=== PATIENT | male | born 1940 | race Caucasian/White ===

== ENCOUNTER 2017-07-29 08:48 | Inpatient (IN) | payer MEDICARE, MEDICAID ==
[~2017-07-29] VITALS: Ht 165.1 cm; Wt 62.2 kg
[~2017-07-29 08:48] MED LIST: AMO875 PO; ASP325 PO; ATOR20TA22 PO; AZIT-1 PO; CEF300 PO; CIP500 PO; FLU150 PO; FLU45SYR17 IM; FLUC100T35 PO; LOR5 PO; MAGN296S6 PO; MET10 PO; MET500 PO; METR-1 PO; NYST100040 PO; PER PO; VAL500 PO
[2017-07-29] MEDS ORDERED: NS(*) 0.9% 500 ML BAG 500 ML IV ONE (09:03)
--- NOTE | 2017-07-29 09:03 | ER Report ---
History and Physical Time Seen By MD: 09:02 Hx. of Stated Complaint: "WOBBLY" STATES THAT HIS GLUCOSE THIS AM WAS 93. FEELS LIKE HE IS GOING TO FALL. C/O HEADACHE FOR THREE DAYS. HPI/ROS CHIEF COMPLAINT: "Wobbily" HISTORY OF PRESENT ILLNESS: Patient is a 67-year-old male with past medical history of type II diabetes. States his blood sugars have been running between 90 and 130 over the past few weeks. He comes to the emergency department with complaint of feeling "wobbly" and also weakness this is confirmed by his spouse. Patient has also been having a headache for the past 3 days that is unremitting it is not severe but it never goes away. He describes the headache is about a 5-6 out of 10 describes it as the entire skull area. Atraumatic injuries. He denies any fevers but does report chills and some body aches. Approximately one year ago he was admitted to the hospital for a "bad pneumonia " and since that time has had respiratory problems. He does wear oxygen at night but feels short of breath during the day without his oxygen. He denies any cough or productive sputum. He denies chest pain or pressure. He denies nausea vomiting or diarrhea. Family further admits that approximately 2-3 weeks ago patient was in [place] with his spouse was with a friend and had a brief episode of a few minutes of difficulty finding words. Patient's daughters admit that this is actually been going on for a longer period of time patient admits that this is also factual, he just did not want to tell anybody. REVIEW OF SYSTEMS: Constitutional: No fevers but reports chills Eyes: No discharge. ENT: No sore throat. No ear pain, no nasal discharge Cardiovascular: No chest pain, no palpitations. Respiratory: No cough but does report shortness of breath during the day while off oxygen Gastrointestinal: No abdominal pain, no vomiting. No diarrhea Genitourinary: No hematuria. Musculoskeletal: No back pain. Skin: No rashes. Neurological: Generalized headache; feels unsteady Allergies: Coded Allergies: Penicillins (Verified Allergy, Mild, REACTION TO INJECTION, 09/09/11) Home Meds Active Scripts Cefdinir 300 Mg Cap (OMNICEF 300 MG CAP (OR EQUIV)) 300 Mg Cap, 300 MG PO BID, # 10 CAP Prov:JASON PARK DO 10/10/16 Azithromycin (ZITHROMAX) 250 Mg Tablet, 1 TAB PO QDAY, #5 TAB Prov:JASON PARK DO 10/10/16 Reported Medications Atorvastatin Calcium (LIPITOR) 20 Mg Tablet, 1 TAB PO QDAY, TAB 03/15/16 Past Medical/Surgical History Past medical history significant for type II diabetes and hyperlipidemia. Hx Smoking: Yes Smoking Status: Former Smoker Exposure to Second Hand Smoke?: No Hx Substance Use Disorder: No Hx Alcohol Use: Yes Constitutional Vital Sign - Last 24 Hours 07/29/17 07/29/17 07/29/17 07/29/17 08:53 09:00 09:30 09:53 Temp 97.6 Pulse 86 80 74 Resp 18 10 B/P (MAP) 114/66 101/65 (77) 119/57 (77) 110/77 (88) Pulse Ox 93 94 94 O2 Delivery Room Air 07/29/17 07/29/17 07/29/17 10:00 10:30 12:00 Pulse 73 67 79 Resp 19 21 8 B/P (MAP) 123/83 (96) 105/83 (90) 118/78 (91) Pulse Ox 93 93 92 Intake and Output 07/29/17 07/29/17 07/30/17 15:00 23:00 07:00 Intake Total 500 ml Balance 500 ml Physical Exam General/Constitutional: Patient is awake, alert, nontoxic and in no acute respiratory distress. Patient is chewing gum during the interview, tolerating secretions well Head: Normocephalic and atraumatic. Eyes: Conjunctival clear, Pupils are equal and reactive to light. Extraocular muscles are intact and symmetrical. Sclera are clear and anicteric. Ears:External canals are clear. Tympanic membranes are clear with normal landmarks and light reflex. Nares: No rhinorrhea or bleeding. Turbinates are pink and moist. Oropharyngeal: Mucous membranes are moist. There is no pharyngeal erythema or exudate. There are no palatal petechiae. Uvula is midline and symmetrical. Neck: Supple, no adenopathy. Cardiovascular: Heart is regular rate and rhythm without audible murmurs, rubs or gallops. Pulmonary: Lungs are noted for scattered wheeze with cough Abdomen: Soft, nontender, no guarding or peritoneal signs. Extremities: No gross deformities, No peripheral cyanosis. Able to move all 4 extremities. Neuro: Alert and oriented X3, Cranial nerves 2 thru 12 are intact and symmetrical. Skin: No rashes, skin is warm dry and well perfused. Medical Decision Making Data Points Result Diagram: 07/29/17 0911 07/29/17 0911 Laboratory Hematology Test 07/29/17 09:11 07/29/17 09:16 07/29/17 09:51 Red Blood Count 5.92 M/uL (4.00-5.60) Mean Corpuscular Volume 90.2 fL (80.0-96.0) Mean Corpuscular Hemoglobin 31.5 pg (26.0-33.0) Mean Corpuscular Hemoglobin Concent 34.9 g/dL (32.0-36.0) Red Cell Distribution Width 14.1 % (11.5-14.5) Mean Platelet Volume 10.6 fL (7.2-11.1) Neutrophils (%) (Auto) 66.7 % (39.4-72.5) Lymphocytes (%) (Auto) 22.2 % (17.6-49.6) Monocytes (%) (Auto) 7.3 % (4.1-12.4) Eosinophils (%) (Auto) 2.6 % (0.4-6.7) Basophils (%) (Auto) 1.2 % (0.3-1.4) Nucleated RBC Relative Count (auto) 0.5 /100WBC Neutrophils # (Auto) 6.7 K/uL (2.0-7.4) Lymphocytes # (Auto) 2.2 K/uL (1.3-3.6) Monocytes # (Auto) 0.7 K/uL (0.3-1.0) Eosinophils # (Auto) 0.3 K/uL (0.0-0.5) Basophils # (Auto) 0.1 K/uL (0.0-0.1) Nucleated RBC Absolute Count (auto) 0.05 K/uL Sodium Level 138 mmol/L (137-145) Potassium Level 4.3 mmol/L (3.5-5.0) Chloride Level 102 mmol/L (98-107) Carbon Dioxide Level 27 mmol/L (22-30) Blood Urea Nitrogen 26 mg/dl (9-21) Creatinine 1.10 mg/dl (0.66-1.25) Glomerular Filtration Rate Calc > 60.0 Random Glucose 150 mg/dl (75-110) Calcium Level 8.9 mg/dl (8.4-10.2) Magnesium Level 1.9 mg/dl (1.7-2.2) Total Bilirubin 1.6 mg/dl (0.2-1.3) Aspartate Amino Transf (AST/SGOT) 27 U/L (0-35) Alanine Aminotransferase (ALT/SGPT) 37 U/L (0-56) Alkaline Phosphatase 94 U/L (0-126) Troponin I < 0.012 ng/ml Total Protein 7.2 gm/dl (6.3-8.2) Albumin 3.6 g/dl (3.5-5.0) Influenza Virus Type A (PCR) Negative (NEGATIVE) Influenza Virus Type B (PCR) Negative (NEGATIVE) Urine Color Yellow Urine Clarity Clear Urine pH 6.0 pH (4.8-9.5) Urine Specific [place] 1.021 Urine Protein 100 mg/dL (NEGATIVE) Urine Glucose (UA) Negative mg/dL (NEGATIVE) Urine Ketones Negative mg/dL (NEGATIVE) Urine Blood Negative (NEGATIVE) Urine Nitrite Negative (NEGATIVE) Urine Bilirubin Negative (NEGATIVE) Urine Urobilinogen Negative mg/dL (0.2-1.9) Urine Leukocyte Esterase Negative (NEGATIVE) Urine RBC None /HPF (0-2/HPF) Urine WBC 2 /HPF (0-5/HPF) Urine Squamous Epithelial Cells Many /LPF (</=FEW) Urine Bacteria Negative /HPF (NONE-FEW) Urine Hyaline Casts Few /LPF (NONE-FEW) Urine Mucus Few /HPF (NONE-FEW) Chemistry Test 07/29/17 09:11 07/29/17 09:16 07/29/17 09:51 White Blood Count 10.1 k/uL (4.5-11.0) Red Blood Count 5.92 M/uL (4.00-5.60) Hemoglobin 18.6 g/dL (14.0-18.0) Hematocrit 53.3 % (42.0-52.0) Mean Corpuscular Volume 90.2 fL (80.0-96.0) Mean Corpuscular Hemoglobin 31.5 pg (26.0-33.0) Mean Corpuscular Hemoglobin Concent 34.9 g/dL (32.0-36.0) Red Cell Distribution Width 14.1 % (11.5-14.5) Platelet Count 113 K/uL (150-450) Mean Platelet Volume 10.6 fL (7.2-11.1) Neutrophils (%) (Auto) 66.7 % (39.4-72.5) Lymphocytes (%) (Auto) 22.2 % (17.6-49.6) Monocytes (%) (Auto) 7.3 % (4.1-12.4) Eosinophils (%) (Auto) 2.6 % (0.4-6.7) Basophils (%) (Auto) 1.2 % (0.3-1.4) Nucleated RBC Relative Count (auto) 0.5 /100WBC Neutrophils # (Auto) 6.7 K/uL (2.0-7.4) Lymphocytes # (Auto) 2.2 K/uL (1.3-3.6) Monocytes # (Auto) 0.7 K/uL (0.3-1.0) Eosinophils # (Auto) 0.3 K/uL (0.0-0.5) Basophils # (Auto) 0.1 K/uL (0.0-0.1) Nucleated RBC Absolute Count (auto) 0.05 K/uL Glomerular Filtration Rate Calc > 60.0 Calcium Level 8.9 mg/dl (8.4-10.2) Magnesium Level 1.9 mg/dl (1.7-2.2) Total Bilirubin 1.6 mg/dl (0.2-1.3) Aspartate Amino Transf (AST/SGOT) 27 U/L (0-35) Alanine Aminotransferase (ALT/SGPT) 37 U/L (0-56) Alkaline Phosphatase 94 U/L (0-126) Troponin I < 0.012 ng/ml Total Protein 7.2 gm/dl (6.3-8.2) Albumin 3.6 g/dl (3.5-5.0) Influenza Virus Type A (PCR) Negative (NEGATIVE) Influenza Virus Type B (PCR) Negative (NEGATIVE) Urine Color Yellow Urine Clarity Clear Urine pH 6.0 pH (4.8-9.5) Urine Specific [place] 1.021 Urine Protein 100 mg/dL (NEGATIVE) Urine Glucose (UA) Negative mg/dL (NEGATIVE) Urine Ketones Negative mg/dL (NEGATIVE) Urine Blood Negative (NEGATIVE) Urine Nitrite Negative (NEGATIVE) Urine Bilirubin Negative (NEGATIVE) Urine Urobilinogen Negative mg/dL (0.2-1.9) Urine Leukocyte Esterase Negative (NEGATIVE) Urine RBC None /HPF (0-2/HPF) Urine WBC 2 /HPF (0-5/HPF) Urine Squamous Epithelial Cells Many /LPF (</=FEW) Urine Bacteria Negative /HPF (NONE-FEW) Urine Hyaline Casts Few /LPF (NONE-FEW) Urine Mucus Few /HPF (NONE-FEW) Urinalysis Test 07/29/17 09:51 Urine Color Yellow Urine Clarity Clear Urine pH 6.0 pH (4.8-9.5) Urine Specific [place] 1.021 Urine Protein 100 mg/dL (NEGATIVE) Urine Glucose (UA) Negative mg/dL (NEGATIVE) Urine Ketones Negative mg/dL (NEGATIVE) Urine Blood Negative (NEGATIVE) Urine Nitrite Negative (NEGATIVE) Urine Bilirubin Negative (NEGATIVE) Urine Urobilinogen Negative mg/dL (0.2-1.9) Urine Leukocyte Esterase Negative (NEGATIVE) Urine RBC None /HPF (0-2/HPF) Urine WBC 2 /HPF (0-5/HPF) Urine Squamous Epithelial Cells Many /LPF (</=FEW) Urine Bacteria Negative /HPF (NONE-FEW) Urine Hyaline Casts Few /LPF (NONE-FEW) Urine Mucus Few /HPF (NONE-FEW) EKG/Imaging EKG Interpretation EKG from 10/06/2016 shows a sinus rhythm with first-degree AV block. There are no EKGs after this date. EKG from today July 29 shows atrial fibrillation at does appear to be rate controlled with a ventricular rate of 88 bpm. Monitor Interpretation: Atrial Fibrillation (rate controlled) Imaging FACILITY: [facility] PATIENT NAME: Erick Montes : 1940 MR: [id number] V: [id number] EXAM DATE: ORDERING PHYSICIAN: ONUR HANNON TECHNOLOGIST: Location: [facility] Patient: Erick Montes : 1940 Visit/Account:[id number] Date of Sevice: 07/29/2017 HEAD W/O CONTRAST HISTORY: Dizziness COMPARISON STUDIES: CT scan 08/21/2011 TECHNIQUE: Contiguous axial images were obtained from the skull base to the vertex. One of the following dose optimization techniques was utilized in the performance of this exam: Automated exposure control; adjustment of the mA and/ or kV according to the patient's size; or use of an iterative reconstruction technique. Specific details can be referenced in the facility's radiology CT exam operational policy. FINDINGS: Hemorrhage: Negative Ventricles / sulci / fissures: Negative Masses / midline shift: Negative White matter: Negative Barraza-white differentiation: Negative Extra-axial spaces: Negative Bones and skull base: Negative Visualized mastoid air cells / paranasal sinuses: Negative IMPRESSION: 1. Unremarkable non-contrast head CT. No evidence for acute intracranial hemorrhage, mass or acute ischemia. Report Dictated By: Horacio Yip MD at 07/29/2017 10:00 AM Report E-Signed By: Horacio Yip MD at 07/29/2017 10:04 AM WSN:[id number] FACILITY: [facility] PATIENT NAME: Erick Montes : 1940 MR: [id number] V: [id number] EXAM DATE: ORDERING PHYSICIAN: ONUR HANNON TECHNOLOGIST: Location: [facility] Patient: Erick Montes : 1940 Visit/Account:[id number] Date of Sevice: 07/29/2017 Exam type: CHEST PA AND LAT History: Chest Pain Comparison: 10/18/2016. Findings: Both lungs are well-expanded and clear. There is no focal consolidation, pleural effusion or pneumothorax. Mildly chronic interstitial markings are noted. Heart size is slightly prominent. The osseous structures demonstrate degenerative changes. IMPRESSION: 1. No acute cardiopulmonary disease. Report Dictated By: Horacio Yip MD at 07/29/2017 9:57 AM Report E-Signed By: Horacio Yip MD at 07/29/2017 10:00 AM WSN:[id number] FACILITY: [facility] PATIENT NAME: Erick Montes : 1940 MR: [id number] V: [id number] EXAM DATE: [id number] ORDERING PHYSICIAN: ONUR HANNON TECHNOLOGIST: Location: [facility] Patient: Erick Montes : 1940 Visit/Account:[id number] Date of Sevannamaria: 07/29/2017 BRAIN W/O CONTRAST History: 76-year-old with ataxia and slurred speech COMPARISON STUDIES: CT had same day TECHNIQUE: Multi-planar, multi-sequence brain MRI was performed without IV contrast administration. FINDINGS: Sagittal midline structures: Negative Masses / midline shift: Negative Vessels: Negative Ventricles / sulci: Negative Extra-axial spaces: Negative Hemorrhage: Negative White matter: Periventricular white matter signal is likely on the basis of small vessel disease. 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 Diffusion: No restricted diffusion Calvarium: Negative Paranasal sinuses / mastoid air cells: Negative Orbits: Negative Visualized upper neck: Negative IMPRESSION: 1. No evidence for acute intracranial hemorrhage, mass or ischemia. 2. 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 3. Periventricular white matter signal is likely on the basis of small vessel disease. Report Dictated By: Horacio Yip MD at 07/29/2017 11:43 AM Report E-Signed By: Horacio Yip MD at 07/29/2017 11:48 AM WSN:[id number] ED Course/Re-evaluation Clinical Indication for ER IV: Hydration, IV Access ED Course 07/29/2017 9:17:08 am Patient with nonspecific weakness for the past few months although headache for 3 days. Patient is followed by primary care provider here in [place]. Plan at this time will be to do a cardiac workup including EKG chest x-ray and troponin. We will also do a CT scan of the head because of the headache. Further , we will perform a urinalysis CBC and electrolytes will also perform flu swab. 07/29/2017 10:22:15 am patient with history that is quite concerning for TIAs. CT scan of the head is unremarkable for acute bleeding or any obvious stroke. Plan at this time will be to perform a brain MRI without contrast to look for evidence of old stroke. 07/29/2017 12:05:[address] Kenzie Saldana who is on-call for the hospitalist service today. History physical exam all pertinent lab data imaging studies reviewed. Plan will be to admit the patient with a diagnosis of new onset yet rate controlled atrial fibrillation and TIAs with prior stroke. Plan will be physical therapy evaluation and then follow-up and further workup for stroke risks. His physical point. The patient and the family have no questions or concerns at time of disposition. Re-evaluation 07/29/2017 10:30:[address] of the head is unremarkable. I did update the family with him my concerns with regard to possible TIAs and future risk of stroke. Also concerned about new onset atrial fibrillation. Explained to both patient and family that I'm going to recommend admission at this time. They had no questions or concerns at this time. Decision to Disposition Date: Jul 29, 2017 Decision to Disposition Time: 12:05 Depart Departure Latest Vital Signs Vital Signs Date Time Temp Pulse Resp B/P (MAP) Pulse Ox O2 Delivery O2 Flow Rate FiO2 07/29/17 12:00 79 8 118/78 (91) 92 07/29/17 08:53 97.6 Room Air Impression: Primary Impression: UNSPECIFIED ATRIAL FIBRILLATION Additional Impression: Transient ischemic attack Condition: Condition Unchanged Disposition: Admitted from ER (to Dr Antoinette Will) Referrals: JORGE SCHWARZ (PCP) Problem Qualifiers Additional Impression: Transient ischemic attack Transient cerebral ischemia type: unspecified Qualified Codes: G45.9 - Transient cerebral ischemic attack, unspecified ONUR HANNON MD Jul 29, 2017 09:03
[2017-07-29] MEDS ORDERED: ASPIRIN 81 MG CHEW PO ONE (09:05)
[2017-07-29 09:23] LABS: PLATELET COUNT, AUTOMATED 113 K/uL (150-450)
--- NOTE | 2017-07-29 09:40 | EKG ---
FACILITY: [facility] PATIENT NAME: REMA PICKENS : [id number] MR: [id number] V: [id number] EXAM DATE: ORDERING PHYSICIAN: ONUR HANNON TECHNOLOGIST: Elie Underwood Reason : Blood Pressure : / mmHG Vent. Rate : 088 BPM Atrial Rate : 375 BPM P-R Int : 000 ms QRS Dur : 116 ms QT Int : 404 ms P-R-T Axes : 000 -70 091 degrees QTc Int : 488 ms Atrial fibrillation Left anterior fascicular block Abnormal QRS-T angle, consider primary T wave abnormality Prolonged QT Abnormal ECG When compared with ECG of 06-OCT-2016 04:44, Atrial fibrillation has replaced Sinus rhythm Non-specific change in ST segment in Lateral leads Confirmed by KATLYN PARHAM ([id number]) on 07/29/2017 4:18:57 PM Referred By: Confirmed By:KATLYN PARHAM
--- NOTE | 2017-07-29 10:04 | RADIOLOGY IMAGING REPORT ---
FACILITY: [facility] [place] PATIENT NAME: Erick Montes : 1940 MR: [id number] V: [id number] EXAM DATE: ORDERING PHYSICIAN: ONUR HANNON [place]CHNOLOG[place]: [place] [facility] [place] Erick [place] : 1940 Visit/Account:[id number] Date of Sevice: 07/29/2017 Exam type: CHEST PA AND LAT History: Chest Pain Comparison: 10/18/2016. Findings: Both lungs are well-expanded and clear. There is no focal consolidation, pleural effusion or pneumoth orax. Mildly chronic interstitial markings are noted. Heart size is slightly prominent. The osseous structures demonstrate degenerative changes. IMPRESSION: 1. No acute cardiopulmonary disease. Report Dictated By: Horacio Yip MD at 07/29/2017 9:57 AM Report E-Signed By: Horacio Yip MD at 07/29/2017 10:00 AM WSN:[id number]
--- NOTE | 2017-07-29 10:07 | RADIOLOGY IMAGING REPORT ---
FACILITY: [facility] [place] PATIENT NAME: Erick Montes : 1940 MR: [id number] V: [id number] EXAM DATE: ORDERING PHYSICIAN: ONUR HANNON TECHNOLOGIST: [facility] Patient: Erick Montes : 1940 Visit/Account:[id number] Date of Sevice: 07/29/2017 HEAD W/O CONTRAST HISTORY: Dizziness COMPARISON STUDIES: CT scan 08/21/2011 TECHNIQUE: Contiguous axial images were obtained from the skull base to the vertex. One of the following dose optimization techniques was utilized in the performance of this exam: Autom ated exposure control; adjustment of the mA and/or kV according to the patient's size; or use of an i terative reconstruction technique. Specific details can be referenced in the facility's radiology C T exam operational policy. FINDINGS: Hemorrhage: Negative Ventricles / sulci / fissures: Negative Masses / midline shift: Negative White matter: Negative Barraza-white differentiation: Negative Extra-axial spaces: Negative Bones and skull base: Negative Visualized mastoid air cells / paranasal sinuses: Negative IMPRESSION: 1. Unremarkable non-contrast head CT. No evidence for acute intracranial hemorrhage, mass or acute i schemia. Report Dictated By: Horacio Yip MD at 07/29/2017 10:00 AM Report E-Signed By: Horacio Yip MD at 07/29/2017 10:04 AM WSN:[id number]
--- NOTE | 2017-07-29 11:52 | RADIOLOGY IMAGING REPORT ---
FACILITY: [facility] [place] PATIENT NAME: Erick Montes : 1940 MR: [id number] V: [id number] EXAM DATE: ORDERING PHYSICIAN: ONUR HANNON TECHNOLOGIST: Location: [facility] Patient: Erick Montes : 1940 Visit/Account:[id number] Date of Sevice: 07/29/2017 BRAIN W/O CONTRAST History: 76-year-old with ataxia and slurred speech COMPARISON STUDIES: CT had same day TECHNIQUE: Multi-planar, multi-sequence brain MRI was performed without IV contrast administration. FINDINGS: Sagittal midline structures: Negative Masses / midline shift: Negative Vessels: Negative Ventricles / sulci: Negative Extra-axial spaces: Negative Hemorrhage: Negative White matter: Periventricular white matter signal is likely on the basis of small vessel disease. 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 Diffusion: No restricted diffusion Calvarium: Negative Paranasal sinuses / mastoid air cells: Negative Orbits: Negative Visualized upper neck: Negative IMPRESSION: 1. No evidence for acute intracranial hemorrhage, mass or ischemia. 2. 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 3. Periventricular white matter signal is likely on the basis of small vessel disease. Report Dictated By: Horacio Yip MD at 07/29/2017 11:43 AM Report E-Signed By: Horacio Yip MD at 07/29/2017 11:48 AM WSN:[id number]
[2017-07-29 12:39] VITALS: BP 127/71
[2017-07-29] MEDS ORDERED: ATOR10TA24 PO (12:53)
[2017-07-29] MEDS ORDERED: GLIM4TAB50 PO (12:53)
[2017-07-29] MEDS ORDERED: ASPI81TA94 PO (12:53)
[2017-07-29] MEDS ORDERED: NS(*) 0.9% 1000 ML BAG 1,000 ML IV PRN (13:23)
[2017-07-29] MEDS ORDERED: ACETAMINOPHEN 325 MG TAB PO PRN (13:25)
[2017-07-29] MEDS ORDERED: INSULIN HUM LISPRO 100 UN/ML 3 ML VIAL SUBQ PRN (13:25)
[2017-07-29 14:42] VITALS: BP 124/91
--- NOTE | 2017-07-29 15:10 | History & Physical ---
History of Present Illness Chief Complaint The patient is a 76 year old male with PMH significant for hyperlipidemia and type II DM who presents with garbled speech and ataxia since this am. History of Present Illness The patient states that his difficulty with balance started last summer. He did not seek medical evaluation for this. He has had multiple episodes of "garbled" speech. The patient states he knows what he wants to say but can't make it come out properly. Each of these episodes has lasted several minutes. The patient and family deny history of facial droop or numbness or weakness of one side of the body. The patient states he has also had a frontal headache for the past 3 days. He does get headaches occasionally. He also notes he has been having intermittent pain in his L shoulder and arm over the past few weeks. The pain usually resolves when he takes an aspirin. He has also noted intermittent palpitations. He has also been more fatigued. He denies fever or chills. He has not had stiffness of his neck. He has not been ill with URI symptoms. He is diabetic and his blood sugars have been stable. He was last hospitalized in early 2017 with pneumonia. He saw his PCP, Eileen Durán NP, about 3 weeks ago. He doesn't recall if blood work was done at this time. History Problems: (1) Diverticulosis (2) GERD (gastroesophageal reflux disease) (3) Type 2 diabetes mellitus Status: Chronic (4) Hyperlipidemia Status: Chronic (5) Tibia/fibula fracture Comment: ORIF. (6) History of cataract extraction Home Meds Reported Medications Aspirin (ASPIRIN) 81 Mg Tab.chew, 81 MG PO QDAY, TAB.CHEW 07/29/17 Glimepiride (GLIMEPIRIDE) 4 Mg Tablet, 4 MG PO QDAY 07/29/17 Atorvastatin Calcium (LIPITOR) 10 Mg Tablet, 1 TAB PO QDAY, TAB 07/29/17 Discontinued Reported Medications Atorvastatin Calcium (LIPITOR) 20 Mg Tablet, 1 TAB PO QDAY, TAB 03/15/16 Discontinued Scripts Cefdinir 300 Mg Cap (OMNICEF 300 MG CAP (OR EQUIV)) 300 Mg Cap, 300 MG PO BID, # 10 CAP Prov:JASON PARK DO 10/10/16 Azithromycin (ZITHROMAX) 250 Mg Tablet, 1 TAB PO QDAY, #5 TAB Prov:JASON PARK DO 10/10/16 Allergies: Coded Allergies: Penicillins (Verified Allergy, Mild, REACTION TO INJECTION, 09/09/11) Other Social/Family Hx The patient is and lives with his in [place]. He is retired. Hx Smoking: Yes Smoking Status: Former Smoker Exposure to Second Hand Smoke?: No When Quit Tobacco?: 1999. started at age 15 quit in 1999 Caffeine Intake: Coffee, Tea Caffeine/Cups Per Day: occassionally Hx Alcohol Use: Yes Hx Substance Use Disorder: No History of IV Drug Use: No Review of Systems Constitutional: No Fever, No Weight Loss, No Night Sweats Neurological: Weakness, Other (Ataxia, garbled speech at times.) Eyes: No Vision Change ENT: No Hearing Loss Cardiovascular: Other (Pain in L shoulder radiating down his arm at times.) Respiratory: No Shortness of Breath, No Cough Gastrointestinal: No Nausea, No Vomiting Genitourinary: No Dysuria Musculoskeletal: Pain (L arm and shoulder intermittently.) Psychiatric: No Depression Exam Vital Signs Vital Signs Date Time Temp Pulse Resp B/P (MAP) Pulse Ox O2 Delivery O2 Flow Rate FiO2 07/29/17 14:42 97.7 73 16 124/91 (102) 95 Room Air General Appearance: Alert, Awake, No Acute Distress, Afebrile Neuro: No Gross deficits Eyes: PERRLA ENT: Normal Neck: No Masses, Other (Carotid pulses full and equal bilaterally. No bruits. Thyroid without distinct nodule on exam. Neck is supple.) Cardiovascular: Other (Irregularly irregular with normal rate.) Respiratory: No Respiratory Distress, Clear to Auscultation GI: Abd Soft and Non-Tender Lymph: Cervical Nodes Benign, No Adenopathy Extremities: Warm, Perfused, Other (No edema.) Integumentary: Skin Intact without Lesion / Mass Psych: Alert & Oriented X3, Appropriate Mood & Affect Medical Decision Making Data Points Result Diagram: 07/29/17 0911 07/29/17 09 Item Value Date Time Magnesium Level 1.9 mg/dl 07/29/17 0911 Total Bilirubin 1.6 mg/dl H 07/29/17 0911 Aspartate Amino Transf (AST/SGOT) 27 U/L 07/29/17 0911 Alanine Aminotransferase (ALT/SGPT) 37 U/L 07/29/17 0911 Alkaline Phosphatase 94 U/L 07/29/17 0911 Total Protein 7.2 gm/dl 07/29/17 0911 Albumin 3.6 g/dl 07/29/17 0911 Troponin I < 0.012 ng/ml 07/29/17 0911 Urine Color Yellow 07/29/17 0951 Urine Clarity Clear 07/29/17 0951 Urine pH 6.0 pH 07/29/17 0951 Urine Specific [place] 1.021 07/29/17 0951 Urine Protein 100 mg/dL 07/29/17 0951 Urine Glucose (UA) Negative mg/dL 07/29/17 0951 Urine Ketones Negative mg/dL 07/29/17 0951 Urine Blood Negative 07/29/17 0951 Urine Nitrite Negative 07/29/17 0951 Urine Bilirubin Negative 07/29/17 0951 Urine Urobilinogen Negative mg/dL 07/29/17 0951 Urine Leukocyte Esterase Negative 07/29/17 0951 Urine RBC None /HPF 07/29/17 0951 Urine WBC 2 /HPF 07/29/17 0951 Urine Squamous Epithelial Cells Many /LPF H 07/29/17 0951 Urine Bacteria Negative /HPF 07/29/17 0951 Urine Hyaline Casts Few /LPF 07/29/17 0951 Urine Mucus Few /HPF 07/29/17 0951 Influenza Virus Type A (PCR) Negative 07/29/17 0911 Influenza Virus Type B (PCR) Negative 07/29/17 0911 EKG / Imaging EKG Interpretation FACILITY: [facility] [place] PATIENT NAME: REMA PICKENS : [id number] MR: [id number] V: [id number] EXAM DATE: ORDERING PHYSICIAN: ONUR HANNON TECHNOLOGIST: Elie Underwood Reason : Blood Pressure : / mmHG Vent. Rate : 088 BPM Atrial Rate : 375 BPM P-R Int : 000 ms QRS Dur : 116 ms QT Int : 404 ms P-R-T Axes : 000 -70 091 degrees QTc Int : 488 ms Atrial fibrillation Left anterior fascicular block Abnormal QRS-T angle, consider primary T wave abnormality Prolonged QT Abnormal ECG When compared with ECG of 06-OCT-2016 04:44, Atrial fibrillation has replaced Sinus rhythm Non-specific change in ST segment in Lateral leads Referred By: Confirmed By: 7 T: / Imaging FACILITY: [facility] [place] PATIENT NAME: Rema Pickens : 1940 MR: [id number] V: [id number] EXAM DATE: ORDERING PHYSICIAN: ONUR HANNON TECHNOLOGIST: [place] [facility] [place] Patient: Rema Pickens : 1940 Visit/Account:[id number] Date of Sevice: 07/29/2017 HEAD W/O CONTRAST HISTORY: Dizziness COMPARISON STUDIES: CT scan 08/21/2011 TECHNIQUE: Contiguous axial images were obtained from the skull base to the vertex. One of the following dose optimization techniques was utilized in the performance of this exam: Automated exposure control; adjustment of the mA and/ or kV according to the patient's size; or use of an iterative reconstruction technique. Specific details can be referenced in the facility's radiology CT exam operational policy. FINDINGS: Hemorrhage: Negative Ventricles / sulci / fissures: Negative Masses / midline shift: Negative White matter: Negative Barraza-white differentiation: Negative Extra-axial spaces: Negative Bones and skull base: Negative Visualized mastoid air cells / paranasal sinuses: Negative IMPRESSION: 1. Unremarkable non-contrast head CT. No evidence for acute intracranial hemorrhage, mass or acute ischemia. Report Dictated By: Horacio Yip MD at 07/29/2017 10:00 AM Report E-Signed By: Horacio Yip MD at 07/29/2017 10:04 AM WSN:[id number] FACILITY: [facility] [place] PATIENT NAME: Rema Pickens : 1940 MR: [id number] V: [id number] EXAM DATE: ORDERING PHYSICIAN: ONUR HANNON TECHNOLOGIST: [place] [facility] [place] Patient: Rema Pickens : 1940 Visit/Account:[id number] Date of Sevice: 07/29/2017 Exam type: CHEST PA AND LAT History: Chest Pain Comparison: 10/18/2016. Findings: Both lungs are well-expanded and clear. There is no focal consolidation, pleural effusion or pneumothorax. Mildly chronic interstitial markings are noted. Heart size is slightly prominent. The osseous structures demonstrate degenerative changes. IMPRESSION: 1. No acute cardiopulmonary disease. Report Dictated By: Horacio Yip MD at 07/29/2017 9:57 AM Report E-Signed By: Horacio Yip MD at 07/29/2017 10:00 AM WSN:[id number] FACILITY: [facility] [place] PATIENT NAME: Rema Pickens : 1940 MR: [id number] V: [id number] EXAM DATE: ORDERING PHYSICIAN: ONUR HANNON TECHNOLOGIST: Location: [facility] [place] Patient: Rema Pickens : 1940 Visit/Account:[id number] Date of Sevice: 07/29/2017 BRAIN W/O CONTRAST History: 76-year-old with ataxia and slurred speech COMPARISON STUDIES: CT had same day TECHNIQUE: Multi-planar, multi-sequence brain MRI was performed without IV contrast administration. FINDINGS: Sagittal midline structures: Negative Masses / midline shift: Negative Vessels: Negative Ventricles / sulci: Negative Extra-axial spaces: Negative Hemorrhage: Negative White matter: Periventricular white matter signal is likely on the basis of small vessel disease. 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 Diffusion: No restricted diffusion Calvarium: Negative Paranasal sinuses / mastoid air cells: Negative Orbits: Negative Visualized upper neck: Negative IMPRESSION: 1. No evidence for acute intracranial hemorrhage, mass or ischemia. 2. 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 3. Periventricular white matter signal is likely on the basis of small vessel disease. Report Dictated By: Horacio Yip MD at 07/29/2017 11:43 AM Report E-Signed By: Horacio Yip MD at 07/29/2017 11:48 AM WSN:[id number] Pre-Admit Course ED Medications Aspirin, NS. Medical Record Review: Yes Assessment and Plan Problems: (1) TIA (transient ischemic attack) Assessment & Plan: The patient has had intermittent "garbled" speech per family. He has a cerebellar CVA on his brain MRI.. He is in atrial fibrillation which is new for him. He was given a full dose aspirin in ER. Will start Xarelto this evening. Echocardiogram and carotid US ordered. Apparently there is no staff in radiology to perform this testing today. (2) Atrial fibrillation Assessment & Plan: EKG shows atrial fibrillation which is new for him. He admits to intermittent palpitations over the past 2 years. Last EKG in the EMR was done in September 2016 and shows NSR. Rate is controlled currently. Will start Xarelto. (3) ATAXIA, UNSPECIFIED Assessment & Plan: The patient has had ongoing ataxia since last summer. MRI shows cerebellar CVA. He has episodes where his ataxia worsens. Will have PT/OT evaluate. (4) CVA (cerebral vascular accident) Assessment & Plan: MRI shows old cerebellar CVA. Patient developed acute difficulty with balance last summer. He has been on ASA 81mg daily. PT/OT ordered. (5) Type 2 diabetes mellitus Status: Chronic Assessment & Plan: Continue glimepiride. Check glucoses AC/HS. SSI as needed ( level 1). Will check a HgA1c. (6) Hyperlipidemia Status: Chronic Assessment & Plan: Continue atorvastatin. Will check a lipid panel fasting with early am labs. Time Spent on Plan of Care: < 30 min Venous Thromboembolism VTE Risk Physician Assess for VTE Risk: Yes Patient's VTE Risk: Low VTE Diagnostic Test 2 Days Prior to Admit: No Antithrombotics Is Pt On Any Antithrombotics?: Yes Exam Sepsis Risk: No Definite Risk KATLYN JENKINS MD Jul 29, 2017 15:10
[2017-07-29] MEDS: RIVAROXABAN 10 MG TAB PO SCH (17:09)
[2017-07-29 19:56] VITALS: BP 128/62
--- NOTE | 2017-07-29 22:08 | RADIOLOGY IMAGING REPORT ---
FACILITY: [facility] PATIENT NAME: Erick Montes : 1940 MR: [id number] V: [id number] EXAM DATE: ORDERING PHYSICIAN: KATLYN JENKINS TECHNOLOGIST: Location: [facility] [place] Patient: Erick Montes : 1940 Visit/Account:[id number] Date of Sevice: 07/29/2017 EXAMINATION: Carotid ultrasound with duplex Doppler evaluation HISTORY: TIA, CVA COMPARISON: 12/12/2016 TECHNIQUE: Real-time grayscale, color flow and Doppler sonography of the cervical carotid and vertebr al arteries is performed. Stenosis % is determined from velocity criteria extrapolated from diameter data as defined by the Soc iety of Radiologists in Ultrasound Consensus Conference Radiology 2003; 229;340-346. FINDINGS: Peak systolic velocities are listed below in centimeters/second: Right: CCA proximal: 113 CCA mid: 92 CCA distal: 50 Bulb: 49 ICA proximal: 46 ICA mid: 62 ICA distal: 72 ECA: 49 Vertebral: 36 ICA/CCA ratio: 0.78 Left: CCA proximal: 83 CCA mid: 80 CCA distal: 55 Bulb: 75 ICA proximal: 47 ICA mid: 57 ICA distal: 71 ECA: 92 Vertebral: 27 ICA/CCA ratio: 0.89 There is mild plaque at the carotid bulb and proximal ICA bilaterally. Normal velocities and waveform s bilaterally, without evidence of hemodynamically significant stenosis in the CCA, ICA, or ECA on ei ther side. The left vertebral artery is diminutive in caliber and suboptimally visualized. Both vertebral arteri es appear patent, with antegrade flow on today's exam. Reversal of flow in the left vertebral artery noted on the prior exam is not documented on today's study. Incidentally noted multiple small bilateral thyroid nodules. IMPRESSION: 1. Mild carotid atherosclerosis, without evidence of hemodynamically significant stenosis. 2. The left vertebral artery is small in caliber and suboptimally visualized, but with apparent anteg rade flow on today's exam. Report Dictated By: Nelson Chavarria MD at 07/29/2017 9:57 PM Report E-Signed By: Nelson Chavarria MD at 07/29/2017 10:04 PM WSN:[id number]
[2017-07-29 23:41] VITALS: BP 95/67
[2017-07-30 03:07] VITALS: BP 115/79
[2017-07-30 08:35] VITALS: BP 118/57
[2017-07-30] MEDS ORDERED: ATORVASTATIN 10 MG TAB PO SCH (09:00)
[2017-07-30] MEDS ORDERED: GLIMEPIRIDE 2 MG TAB PO SCH (09:00)
[2017-07-30 09:01] VITALS: Ht 165.1 cm; Wt 62.2 kg
--- NOTE | 2017-07-30 13:16 | Hospitalist Progress Note ---
Subjective Progress Notes Subjective This patient was admitted for reported TIA. He left AMA last evening, but the family convinced him to come back. Patient Complains of: Cardiovascular: No: Chest Pain Respiratory: No: Shortness of Breath Physical Exam Vital Signs Date Time Temp Pulse Resp B/P (MAP) Pulse Ox O2 Delivery O2 Flow Rate FiO2 07/30/17 08:40 91 Room Air 07/30/17 08:38 80 07/30/17 08:35 97.5 16 118/57 (77) 2.5 Intake and Output 07/31/17 07:00 Intake Total 991 ml Balance 991 ml Intake Oral 400 ml IV Total 591 ml Neuro: Other (Intermittent ataxia and slurred speech.) Cardiovascular: Other (Irregular rhythm.) Respiratory: Clear to Auscultation Result Diagram: 07/29/1791007/29/17910 Imaging Brain MRI reviewed. Carotid ultrasound reviewed. Monitor Interpretation: Atrial Fibrillation (rate controlled) Assessment and Plan Problems: (1) CVA (cerebral vascular accident) Assessment & Plan: He reports intermittent issues with balance and speech since last summer, but did not seek medical evaluation until this admission. His MRI showed an old infarct in the left cerebellum and chronic small vessel changes. A carotid ultrasound was negative for hemodynamically significant lesions. An echocardiogram is pending. (2) TIA (transient ischemic attack) Assessment & Plan: He does report intermittent episodes of worsening ataxia since his initial stroke, which likely occurred last summer. At this time we have not found any treatable cause other than his atrial fibrillation. (3) Atrial fibrillation Assessment & Plan: His EKG and telemetry have shown him to be consistently in Afib. We have started him on anticoagulation with Xarelto. (4) Type 2 diabetes mellitus Status: Chronic Assessment & Plan: He is on chronic treatment with glimepiride. We currently have him on sliding scale level #1. (5) Hyperlipidemia Status: Chronic Assessment & Plan: He is on chronic treatment with atorvastatin. His lipid panel showed his LDL to be 38. Exam Sepsis Risk: No Definite Risk JASON PARK DO Jul 30, 2017 13:16
[2017-07-30] MEDS ORDERED: RIVA20TA PO (17:12)
--- NOTE | 2017-07-30 17:15 | Hospitalist Depart ---
Discharge Summary Reason for Hosp/Final Diag: (1) CVA (cerebral vascular accident) Hospital Course & Plan: He reports intermittent issues with balance and speech since last summer, but did not seek medical evaluation until this admission. His MRI showed an old infarct in the left cerebellum and chronic small vessel changes. A carotid ultrasound was negative for hemodynamically significant lesions. An echocardiogram is reported to show some valvular stenosis, but an official report is pending. (2) TIA (transient ischemic attack) Hospital Course & Plan: He does report intermittent episodes of worsening ataxia since his initial stroke, which likely occurred last summer. At this time we have not found any treatable cause other than his atrial fibrillation. (3) Atrial fibrillation Hospital Course & Plan: His EKG and telemetry have shown him to be consistently in Afib. We have started him on anticoagulation with Xarelto. (4) Type 2 diabetes mellitus Status: Chronic Hospital Course & Plan: He is on chronic treatment with glimepiride. (5) Hyperlipidemia Status: Chronic Hospital Course & Plan: He is on chronic treatment with atorvastatin. His lipid panel showed his LDL to be 38. Departure Latest Vital Signs Vital Signs 07/30/17 07/30/17 08:35 08:38 Temp 97.5 Pulse 80 Resp 16 B/P (MAP) 118/57 (77) O2 Flow Rate 2.5 Weight (Pounds): 137 Weight (Ounces): 3.0 Result Diagram: 07/29/1791007/29/17910 Condition: Improved Discharge: Home, Self Care Discharge Instructions Home Meds Active Scripts Rivaroxaban 20 Mg (XARELTO 20 MG) 20 Mg Tablet, 20 MG PO QDAY, #30 TAB Prov:JASON PARK DO 07/30/17 Reported Medications Glimepiride (GLIMEPIRIDE) 4 Mg Tablet, 4 MG PO QDAY 07/29/17 Atorvastatin Calcium (LIPITOR) 10 Mg Tablet, 1 TAB PO QDAY, TAB 07/29/17 Discontinued Reported Medications Aspirin (ASPIRIN) 81 Mg Tab.chew, 81 MG PO QDAY, TAB.CHEW 07/29/17 Atorvastatin Calcium (LIPITOR) 20 Mg Tablet, 1 TAB PO QDAY, TAB 03/15/16 Discontinued Scripts Cefdinir 300 Mg Cap (OMNICEF 300 MG CAP (OR EQUIV)) 300 Mg Cap, 300 MG PO BID, # 10 CAP Prov:JASON PARK DO 10/10/16 Azithromycin (ZITHROMAX) 250 Mg Tablet, 1 TAB PO QDAY, #5 TAB Prov:JASON PARK DO 10/10/16 Diet: Diabetic Activity: As Tolerated Copies to: JORGE SCHWARZ Venous Thromboembolism Antithrombotics Is Pt On Any Antithrombotics?: Yes JASON PARK DO Jul 30, 2017 17:15
[2017-07-30] MEDS: RIVAROXABAN 10 MG TAB PO SCH (17:20)
[2017-07-31] MEDS ORDERED: INFLUENZA VIRUS VAC 0.5 ML SYR IM ONLY ONE (13:25)
--- NOTE | 2017-07-31 17:11 | RADIOLOGY IMAGING REPORT ---
FACILITY: [facility] [place] PATIENT NAME: REMA PICKENS : [id number] MR: [id number] V: [id number] EXAM DATE: ORDERING PHYSICIAN: KATLYN JENKINS TECHNOLOGIST: Ramya Mahmood EXAMINATION:TWO-DIMENSIONAL ECHOCARDIOGRAPH REASON:ATRIAL FIBRILLATION AND HISTORY OF CVA. 2D Measurements (normal values in centimeters) LV endLV endRV endVent.LV PostAorticLeftPercent DiastolicSystolicDiastolicSeptumWallRootAtriumShortening (3.5-5.7)(0.9-2.6)(0.6-1.1)(0.6-1.1)(2.0-3.7)(1.9-4.0)(25-35%) [id number]% STROKE VOLUME: 36.5 mL ESTIMATED EJECTION FRACTION:63% PARASTERNAL LONG AXIS: The left atrium appears to be enlarged. The right ventricle is the upper range of normal in size. The mitral valve appears to be sclerotic and possibly stenotic. Aortic valve appears to be mildly sclerotic but does not appear to be stenotic. Color examination of the valves reveals a trace amount of mitral insufficiency and a trace amount of aortic insufficiency present. The patient appears to be in atrial fibrillation, no thrombi are noted and the left atrial appendage is not seen. Prominent pericardial fat pad is noted. No thrombi noted in any of the chambers but the left atrial appendage is not seen. Color examination of the tricuspid valve revealed a moderate amount of tricuspid insufficiency present. PARASTERNAL SHORT AXIS: Normal left ventricular ejection fraction. There is some flattening along the interventricular septum. Right ventricle appears to be borderline enlarged. Color examination of the aortic valve revealed some aortic insufficiency. Aortic valve was trileaflet in configuration with some sclerosis but does not appear to be stenotic. APICAL FOUR AND TWO CHAMBER: The aortic valve appears to be stenotic. The aortic valve area was measured at 1.3 cm2 and the mitral valve area measured within normal range at 2.2 cm2. Left atrial and right atrial volume is severely increased at 62.5 and 47 ml/m2. Left ventricular function does appear to be normal. Again, no wall motion abnormalities are noted. Color examination of the mitral valve reveals a mild amount of mitral insufficiency but there is turbulent flow across the mitral valve. No thrombi noted in any of the chambers but the left atrial appendage is not seen. SUBCOSTAL VIEW: The subcostal view was really not able to be obtained reliably but no pericardial effusion was noted. OVERALL IMPRESSION: 1. Normal left ventricular ejection fraction. We were unable to accurately identify the diastolic function as the patient is in atrial fibrillation. No thrombi are noted but the left atrial appendage was not seen. 2. The right ventricle is the upper range of normal in size if not slightly enlarged. There is severe enlargement of the left atrium and right atrium. 3. A trileaflet aortic valve with mild aortic sclerosis but no stenosis and a trace of aortic insufficiency is noted. 4. There appears to be some mitral stenosis. Anterior leaf of the mitral valve is heavily calcified. The valve area was measured at 1.3 cm2. 5. A moderate amount of tricuspid insufficiency with estimated right ventricular systolic pressures of 50 mmHg which does include an estimated right atrial pressure of 8 mmHg indicating moderate pulmonary hypertension and increased right ventricular systolic pressures. 6. The patient's atrial fibrillation appears to be in a controlled rate. Again, no thrombi were noted but the left atrial appendage was not seen. Dictated by: Odilon Ruiz M.D. on 07/30/2017 at 18:25 Transcribed by: KEN on 07/31/2017 at 10:08 Approved by: Odilon Ruiz M.D. on 07/31/2017 at 17:09 [facility]
== END 2017-07-30 17:50 | disposition home or self-care (01) | DRG 69 ==
LOC: ER 09:07 → MED 12:17
PROVIDERS: ADMIT Internal Medicine; ATTEND Internal Medicine
DX: G45.9 Transient cerebral ischemic attack, unspecified (principal); I69.393 Ataxia following cerebral infarction; I48.2 Chronic atrial fibrillation; E11.9 Type 2 diabetes mellitus without complications; K21.9 Gastro-esophageal reflux disease without esophagitis; I05.0 Rheumatic mitral stenosis; E78.5 Hyperlipidemia, unspecified; Z88.0 Allergy status to penicillin; Z87.891 Personal history of nicotine dependence; Z79.84 Long term (current) use of oral hypoglycemic drugs
CPT/HCPCS: 36415; 36416; 70450; 70551; 71046; 81001; 82040; 82247; 82310; 82374; 82435; 82465; 82565; 82947; 82948; 83718; 83735; 84075; 84132; 84155; 84295; 84443; 84450; 84460; 84478; 84484; 84520; 85025; 87088; 87502; 93005; 93306; 93880; 96360; 97161; 97165; 99285; J7030; J7040

== ENCOUNTER 2017-09-04 08:43 | Emergency (ER) | payer MEDICARE, MEDICAID ==
[2017-07-30 09:01] VITALS: Ht 165.1 cm; Wt 62.2 kg
[~2017-09-04] VITALS: Ht 165.1 cm; Wt 62.2 kg
[~2017-09-04 08:43] MED LIST changes: -METO50TA19 PO; -NITR0.4T3 SL; -ONDA4TAB PO
[2017-09-04] MEDS ORDERED: NITR0.4T3 SL (08:51)
[2017-09-04] MEDS ORDERED: METO50TA19 PO (08:51)
--- NOTE | 2017-09-04 08:56 | ER Report ---
History and Physical Time Seen By MD: 08:56 Hx. of Stated Complaint: pt reports confusion, "doesn't feel right", slight headache HPI/ROS CHIEF COMPLAINT: headache, doesn't feel right, some confusion this morning HISTORY OF PRESENT ILLNESS: This is a 76 year old male. He was brought to the ER by EMS this morning. Not feeling right, but difficult describing what is wrong. He has a history of stroke and TIA in the past. Has atrial fibrillation. Has been on Xarelto, started after hospitalization last month. He is just being switched to Eliquis. He has a headache today. He denies vision changes. He has no chest pain or shortness of breath. No abdominal pain. No nausea or vomiting. Denies diarrhea or constipation. Denies dysuria or problems with urination. He feels weak all over, but no focal weakness. His family states that he had has some vomiting this morning and he did have some diarrhea as well. Allergies: Coded Allergies: Penicillins (Verified Allergy, Mild, REACTION TO INJECTION, 09/04/17) Home Meds Active Scripts Ondansetron (ZOFRAN ODT) 4 Mg Tab.rapdis, 4 MG PO Q6H Y for NAUSEA/VOMITING, # 20 TAB.JEANNE 0 Refills Prov:LAMBERT HAYDEN MD 09/04/17 Rivaroxaban 20 Mg (XARELTO 20 MG) 20 Mg Tablet, 20 MG PO QDAY, #30 TAB Prov:JASON PARK DO 07/30/17 Reported Medications Nitroglycerin (NITROGLYCERIN) 0.4 Mg Tab.subl, 0.4 MG SL Q5MIN 09/04/17 Metoprolol Succinate (METOPROLOL SUCCINATE) 50 Mg Tab.er.24h, 1 TAB PO QDAY, TAB 09/04/17 Glimepiride (GLIMEPIRIDE) 4 Mg Tablet, 4 MG PO QDAY 07/29/17 Atorvastatin Calcium (LIPITOR) 10 Mg Tablet, 1 TAB PO QDAY, TAB 07/29/17 Reviewed Nurses Notes: Yes Hx Smoking: Yes Smoking Status: Former Smoker Exposure to Second Hand Smoke?: No Hx Substance Use Disorder: No Hx Alcohol Use: Yes Constitutional Vital Sign - Last 24 Hours 09/04/17 09/04/17 09/04/17 09/04/17 08:45 08:47 08:58 09:00 Temp 97.5 Pulse 60 68 Resp 16 12 B/P (MAP) 101/45 101/65 (77) 120/65 (83) Pulse Ox 96 94 O2 Delivery Room Air 09/04/17 2//18 2//18 2// 09:13 09:28 09:30 10:10 Pulse 61 64 Resp 6 B/P (MAP) 101/55 (70) 123/70 (87) Pulse Ox 94 09/04/18 220/18 2/20/18 2/20/18 10:18 10:30 10:33 10:48 Pulse 58 61 61 Resp 12 6 14 B/P (MAP) 98/63 (75) Pulse Ox 93 92 93 09/04/ 2/ 2//18 2// 11:00 11:05 11:10 11:20 Pulse 57 59 55 Resp 12 9 B/P (MAP) 111/63 (79) Pulse Ox 91 89 09/04/ 2/18 2//18 / 11:25 11:30 11:35 11:40 Pulse 52 61 51 55 Resp 13 17 17 25 B/P (MAP) 104/56 (72) Pulse Ox 79 96 92 98 09/04/ 2//18 2/20/18 2// 11:55 12:00 12:05 12:10 Pulse 52 54 54 56 B/P (MAP) 103/56 (72) Pulse Ox 95 95 94 91 20/18 2/20/18 2/20/18 2/20/18 12:15 12:20 12:25 12:30 Pulse 50 57 55 53 B/P (MAP) 114/66 (82) Pulse Ox 89 90 88 91 20/18 2/20/18 2/20/18 2/20/18 12:35 12:40 12:45 12:50 Pulse 53 57 58 61 Pulse Ox 86 93 86 94 09/04/17 12:53 B/P (MAP) 112/64 (80) Intake and Output 09/04/17 2/20/18 2//18 15:00 23:00 07:00 Intake Total 2000 ml Balance 2000 ml Physical Exam General Appearance: The patient is alert. No acute distress. Eyes: Pupils are equal, round. Reactive to light. No pallor, injection or icterus. Extraocular movements are intact. ENT: Mucous membranes are moist. Normal oral mucosa. Posterior oropharynx is normal. Neck: Supple and non tender. No lymphadenopathy. Respiratory: Breathing easily and unlabored. Lungs are clear to auscultation. Cardiovascular:Irregularly irregular but with normal rate. No murmurs, gallops or rubs. Normal capillary refill. No edema. Gastrointestinal: Abdomen is soft and non tender. Nondistended. Normal active bowel sounds. Neurological: Alert and oriented x3. Cranial nerves II through XII show no acute deficits on my exam. No focal neurologic deficits in the extremities. Skin: Warm and dry. No rashes. Musculoskeletal: Extremities are nontender. Full range of motion. No tenderness in palpation of the cervical, thoracic and lumbar spine. DIFFERENTIAL DIAGNOSIS: After history and physical exam, differential diagnosis was considered for headache and altered mental status this morning. Family reports that he has had some diarrhea and a few episodes of vomiting the last few days as well. Medical Decision Making Data Points Result Diagram: 09/04/17 0848 09/04/17 0932 Laboratory Hematology Test 09/04/17 08:48 09/04/17 09:08 09/04/17 09:32 09/04/17 10:01 Red Blood Count 5.32 M/uL (4.00-5.60) Mean Corpuscular Volume 92.4 fL (80.0-96.0) Mean Corpuscular Hemoglobin 31.7 pg (26.0-33.0) Mean Corpuscular Hemoglobin Concent 34.3 g/dL (32.0-36.0) Red Cell Distribution Width 13.5 % (11.5-14.5) Mean Platelet Volume 10.9 fL (7.2-11.1) Neutrophils (%) (Auto) 70.8 % (39.4-72.5) Lymphocytes (%) (Auto) 18.6 % (17.6-49.6) Monocytes (%) (Auto) 9.4 % (4.1-12.4) Eosinophils (%) (Auto) 0.8 % (0.4-6.7) Basophils (%) (Auto) 0.4 % (0.3-1.4) Nucleated RBC Relative Count (auto) 0.1 /100WBC Neutrophils # (Auto) 5.9 K/uL (2.0-7.4) Lymphocytes # (Auto) 1.6 K/uL (1.3-3.6) Monocytes # (Auto) 0.8 K/uL (0.3-1.0) Eosinophils # (Auto) 0.1 K/uL (0.0-0.5) Basophils # (Auto) 0.0 K/uL (0.0-0.1) Nucleated RBC Absolute Count (auto) 0.01 K/uL Peripheral Blood Smear No Y/N Influenza Virus Type A (PCR) Negative (NEGATIVE) Influenza Virus Type B (PCR) Negative (NEGATIVE) Sodium Level 140 mmol/L (137-145) Potassium Level 3.8 mmol/L (3.5-5.0) Chloride Level 104 mmol/L (98-107) Carbon Dioxide Level 25 mmol/L (22-30) Blood Urea Nitrogen 27 mg/dl (9-21) Creatinine 1.40 mg/dl (0.66-1.25) Glomerular Filtration Rate Calc 49.3 Random Glucose 159 mg/dl (75-110) Calcium Level 8.1 mg/dl (8.4-10.2) Total Bilirubin 1.4 mg/dl (0.2-1.3) Aspartate Amino Transf (AST/SGOT) 23 U/L (0-35) Alanine Aminotransferase (ALT/SGPT) 37 U/L (0-56) Alkaline Phosphatase 76 U/L (0-126) Total Protein 6.4 gm/dl (6.3-8.2) Albumin 3.2 g/dl (3.5-5.0) Urine Color Alessandra Urine Clarity Cloudy Urine pH 5.0 pH (4.8-9.5) Urine Specific [place] 1.021 Urine Protein 100 mg/dL (NEGATIVE) Urine Glucose (UA) Negative mg/dL (NEGATIVE) Urine Ketones Negative mg/dL (NEGATIVE) Urine Blood Negative (NEGATIVE) Urine Nitrite Negative (NEGATIVE) Urine Bilirubin Negative (NEGATIVE) Urine Urobilinogen 2.0 mg/dL (0.2-1.9) Urine Leukocyte Esterase Negative (NEGATIVE) Urine RBC None /HPF (0-2/HPF) Urine WBC 9 /HPF (0-5/HPF) Urine Squamous Epithelial Cells Many /LPF (</=FEW) Urine Bacteria Few /HPF (NONE-FEW) Urine Hyaline Casts Many /LPF (NONE-FEW) Urine Mucus Few /HPF (NONE-FEW) Test 09/04/17 12:15 Troponin I 0.012 ng/ml Chemistry Test 09/04/17 08:48 09/04/17 09:08 09/04/17 09:32 09/04/17 10:01 White Blood Count 8.3 k/uL (4.5-11.0) Red Blood Count 5.32 M/uL (4.00-5.60) Hemoglobin 16.9 g/dL (14.0-18.0) Hematocrit 49.2 % (42.0-52.0) Mean Corpuscular Volume 92.4 fL (80.0-96.0) Mean Corpuscular Hemoglobin 31.7 pg (26.0-33.0) Mean Corpuscular Hemoglobin Concent 34.3 g/dL (32.0-36.0) Red Cell Distribution Width 13.5 % (11.5-14.5) Platelet Count 96 K/uL (150-450) Mean Platelet Volume 10.9 fL (7.2-11.1) Neutrophils (%) (Auto) 70.8 % (39.4-72.5) Lymphocytes (%) (Auto) 18.6 % (17.6-49.6) Monocytes (%) (Auto) 9.4 % (4.1-12.4) Eosinophils (%) (Auto) 0.8 % (0.4-6.7) Basophils (%) (Auto) 0.4 % (0.3-1.4) Nucleated RBC Relative Count (auto) 0.1 /100WBC Neutrophils # (Auto) 5.9 K/uL (2.0-7.4) Lymphocytes # (Auto) 1.6 K/uL (1.3-3.6) Monocytes # (Auto) 0.8 K/uL (0.3-1.0) Eosinophils # (Auto) 0.1 K/uL (0.0-0.5) Basophils # (Auto) 0.0 K/uL (0.0-0.1) Nucleated RBC Absolute Count (auto) 0.01 K/uL Peripheral Blood Smear No Y/N Influenza Virus Type A (PCR) Negative (NEGATIVE) Influenza Virus Type B (PCR) Negative (NEGATIVE) Glomerular Filtration Rate Calc 49.3 Calcium Level 8.1 mg/dl (8.4-10.2) Total Bilirubin 1.4 mg/dl (0.2-1.3) Aspartate Amino Transf (AST/SGOT) 23 U/L (0-35) Alanine Aminotransferase (ALT/SGPT) 37 U/L (0-56) Alkaline Phosphatase 76 U/L (0-126) Total Protein 6.4 gm/dl (6.3-8.2) Albumin 3.2 g/dl (3.5-5.0) Urine Color Alessandra Urine Clarity Cloudy Urine pH 5.0 pH (4.8-9.5) Urine Specific [place] 1.021 Urine Protein 100 mg/dL (NEGATIVE) Urine Glucose (UA) Negative mg/dL (NEGATIVE) Urine Ketones Negative mg/dL (NEGATIVE) Urine Blood Negative (NEGATIVE) Urine Nitrite Negative (NEGATIVE) Urine Bilirubin Negative (NEGATIVE) Urine Urobilinogen 2.0 mg/dL (0.2-1.9) Urine Leukocyte Esterase Negative (NEGATIVE) Urine RBC None /HPF (0-2/HPF) Urine WBC 9 /HPF (0-5/HPF) Urine Squamous Epithelial Cells Many /LPF (</=FEW) Urine Bacteria Few /HPF (NONE-FEW) Urine Hyaline Casts Many /LPF (NONE-FEW) Urine Mucus Few /HPF (NONE-FEW) Test 09/04/17 12:15 Troponin I 0.012 ng/ml Urinalysis Test 09/04/17 10:01 Urine Color Alessandra Urine Clarity Cloudy Urine pH 5.0 pH (4.8-9.5) Urine Specific [place] 1.021 Urine Protein 100 mg/dL (NEGATIVE) Urine Glucose (UA) Negative mg/dL (NEGATIVE) Urine Ketones Negative mg/dL (NEGATIVE) Urine Blood Negative (NEGATIVE) Urine Nitrite Negative (NEGATIVE) Urine Bilirubin Negative (NEGATIVE) Urine Urobilinogen 2.0 mg/dL (0.2-1.9) Urine Leukocyte Esterase Negative (NEGATIVE) Urine RBC None /HPF (0-2/HPF) Urine WBC 9 /HPF (0-5/HPF) Urine Squamous Epithelial Cells Many /LPF (</=FEW) Urine Bacteria Few /HPF (NONE-FEW) Urine Hyaline Casts Many /LPF (NONE-FEW) Urine Mucus Few /HPF (NONE-FEW) EKG/Imaging EKG Interpretation 12 lead EKG: Rhythm: Atrial fibrillation, rate 70 [place]: normal QRS: Left anterior fascicular block ST segments: normal ED Course/Re-evaluation Clinical Indication for ER IV: Hydration, IV Access ED Course Initial troponin was negative and no signs of ischemia on EKG. He feels quite a bit better after the IV fluids started by EMS. He does have signs of dehydration , but electrolytes look normal. Chest x-ray and EKG were normal. No signs of focal neuro deficits or signs of stroke. A second liter of NS was given and he was even more improved. CT head and chest x-ray were negative. Suspect viral syndrome. Repeat EKG and Troponin were unchanged and negative. Reviewed all of this with the patient and family. Urine culture ordered based on a few cellular changes on urine microscopic. Decision to Disposition Date: Sep 04, 2017 Decision to Disposition Time: 12:53 Depart Departure Latest Vital Signs Vital Signs Date Time Temp Pulse Resp B/P (MAP) Pulse Ox O2 Delivery O2 Flow Rate FiO2 09/04/17 12:53 112/64 (80) 09/04/17 12:50 61 94 09/04/17 11:40 25 09/04/17 08:45 97.5 Room Air Impression: Primary Impression: Dehydration Additional Impression: Viral syndrome Condition: Improved Disposition: HOME OR SELF-CARE Referrals: JORGE SCHWARZ (PCP) New Scripts Ondansetron (ZOFRAN ODT) 4 Mg Tab.rapdis 4 MG PO Q6H Y for NAUSEA/VOMITING, #20 TAB.JEANNE 0 Refills Prov: LAMBERT HAYDEN MD 09/04/17 Patient Instructions: Dehydration (ED), Viral Syndrome (ED) Additional Instructions: It appears that your confusion this morning was due to a viral infection causing nausea and diarrhea. We did not find any other dangerous causes of symptoms and you seem to be much better after IV fluids. You can take some Immodium as needed for the diarrhea. Zofran 4mg, one every 6 hours as needed for nausea. Rest and increase fluid intake today. You can start eating bland foods. Follow-up with your regular doctor later this week or early next week for re- evaluation. Problem Qualifiers LAMBERT HAYDEN MD Sep 04, 2017 08:56
[2017-09-04] MEDS ORDERED: EMS NS 0.9%(*) 1000 ML BAG 1,000 ML IV ONE (09:00)
[2017-09-04 09:12] LABS: PLATELET COUNT, AUTOMATED 96 K/uL (150-450)
--- NOTE | 2017-09-04 09:42 | EKG ---
FACILITY: [facility] - [place] PATIENT NAME: REMA PICKENS : [id number] MR: [id number] V: [id number] EXAM DATE: ORDERING PHYSICIAN: LAMBERT HAYDEN TECHNOLOGIST: KHURRAM Test Reason : CONFUSION Blood Pressure : / mmHG Vent. Rate : 070 BPM Atrial Rate : 340 BPM P-R Int : 000 ms QRS Dur : 122 ms QT Int : 456 ms P-R-T Axes : 000 -61 090 degrees QTc Int : 492 ms Atrial fibrillation vs atrial flutter Left anterior fascicular block R wave progression consistent with old ant/sep [place] vs lead placement When compared with ECG of 29-JUL-2017 09:18, No significant change was found Confirmed by CORBIN COSTA ([id number]) on 09/04/2017 10:20:04 PM Referred By: JACKELYN Confirmed By:CORBIN COSTA
--- NOTE | 2017-09-04 09:48 | RADIOLOGY IMAGING REPORT ---
FACILITY: [facility] [place] PATIENT NAME: Erick Montes : 1940 MR: [id number] V: [id number] EXAM DATE: ORDERING PHYSICIAN: LAMBERT HAYDEN TECHNOLOGIST: Location: [facility] Patient: Erick Montes : 1940 Visit/Account:[id number] Date of Sevice: 09/04/2017 Exam type: CHEST SINGLE AP History: Disoriented, difficulty speaking and walking Comparison: January 26, 2018. Findings: The lungs are free of acute effusions, infiltrates or edema. There is mild chronic elevation right h emidiaphragm. The cardiac silhouette is mildly prominent though similar to the prior examination. IMPRESSION: 1. No acute cardiac pulmonary process is seen Report Dictated By: Emmie Crawford MD at 09/04/2017 9:43 AM Report E-Signed By: Emmie Crawford MD at 09/04/2017 9:44 AM WSN:[email or web address]
--- NOTE | 2017-09-04 10:28 | RADIOLOGY IMAGING REPORT ---
FACILITY: [facility] - [place] PATIENT NAME: Erick Montes : 1940 MR: [id number] V: [id number] EXAM DATE: ORDERING PHYSICIAN: LAMBERT HAYDEN TECHNOLOGIST: Location: [facility] [place] Patient: Erick Montes : 1940 Visit/Account:[id number] Date of Sevice: 09/04/2017 Study: CT scan of the brain without intravenous contrast. Indication:Altered metal status Comparison study: July 29, 2017 Technique: Multiple axial images were obtained through the brain without the use of intravenous contr ast. One of the following dose optimization techniques was utilized in the performance of this exam: Autom ated exposure control; adjustment of the mA and/or kV according to the patient's size; or use of an i terative reconstruction technique. Specific details can be referenced in the facility's radiology C T exam operational policy. The examination demonstrates no evidence of acute intracranial hemorrhage. There is no evidence of ex tra-axial collection or hydrocephalus. There is hypodensity present adjacent to the atrium of the right lateral ventricle. This is consisten t with an old infarct. This is not significantly changed from the previous study. There is no evidence of disruption of the peripheral alexis-white junction. The bony structures are unremarkable. IMPRESSION: No acute intracranial abnormality identified. Report Dictated By: Gavin Live at 09/04/2017 10:20 AM Report E-Signed By: Gavin Live at 09/04/2017 10:24 AM WSN:[email or web address]
[2017-09-04] MEDS ORDERED: NS(*) 0.9% 1000 ML BAG 1,000 ML IV ONE (10:35)
--- NOTE | 2017-09-04 12:13 | EKG ---
FACILITY: [facility] - [place] PATIENT NAME: REMA PICKENS : [id number] MR: [id number] V: [id number] EXAM DATE: ORDERING PHYSICIAN: LAMBERT HAYDEN TECHNOLOGIST: SUSIE Underwood Reason : afib Blood Pressure : / mmHG Vent. Rate : 057 BPM Atrial Rate : 065 BPM P-R Int : 000 ms QRS Dur : 108 ms QT Int : 476 ms P-R-T Axes : 000 -56 128 degrees QTc Int : 463 ms Atrial fibrillation vs atrial flutter Left anterior fascicular block Nonspecific ST and T wave abnormality R wave progression consistent with an old ant/sep [place] vs lead placement When compared with ECG of 04-SEP-2017 08:47, T wave inversion more evident in Lateral leads Confirmed by CORBIN COSTA ([id number]) on 09/04/2017 10:23:28 PM Referred By: REPEAT Confirmed By:CORBIN COSTA
[2017-09-04 12:53] VITALS: BP 112/64
[2017-09-04] MEDS ORDERED: ONDA4TAB PO (12:54)
== END 2017-09-04 12:58 | disposition home or self-care (01) ==
LOC: ER 08:52
DX: E86.0 Dehydration (principal); B34.9 Viral infection, unspecified; I48.91 Unspecified atrial fibrillation
CPT/HCPCS: 36415; 70450; 71045; 81001; 84484; 85025; 87088; 87502; 93005; 96360; 96361; 99284; J7030; 82040; 82247; 82310; 82374; 82435; 82565; 82947; 84075; 84132; 84155; 84295; 84450; 84460; 84520

== ENCOUNTER → 2017-09-04 | Outpatient (CLI) | payer MEDICARE, MEDICAID ==
[~2017-09-04] MED LIST changes: +ASPI81TA94 PO; +ATOR10TA24 PO; +GLIM4TAB50 PO; +METO50TA19 PO; +NITR0.4T3 SL; +ONDA4TAB PO; +RIVA20TA PO
[2017-09-06 11:59] VITALS: BMI 22.8
== END ==
LOC: AMB 08:17
PROVIDERS: ATTEND Nurse Practitioner
DX: R41.0 Disorientation, unspecified (principal); I48.91 Unspecified atrial fibrillation
CPT/HCPCS: A0425; A0427

== ENCOUNTER 2017-09-05 17:16 | Observation (INO) | payer MEDICARE, MEDICAID ==
[~2017-09-05] VITALS: Ht 165.1 cm; Wt 62.2 kg
--- NOTE | 2017-09-05 17:34 | EKG ---
FACILITY: [facility] PATIENT NAME: REMA PICKENS : [id number] MR: [id number] V: [id number] EXAM DATE: ORDERING PHYSICIAN: STEPAN LEE TECHNOLOGIST: ALBERTO Underwood Reason : NEURO Blood Pressure : / mmHG Vent. Rate : 067 BPM Atrial Rate : 064 BPM P-R Int : 000 ms QRS Dur : 118 ms QT Int : 430 ms P-R-T Axes : 000 -52 085 degrees QTc Int : 454 ms Atrial fibrillation with a competing junctional pacemaker Left anterior fascicular block Abnormal ECG When compared with ECG of 04-SEP-2017 11:52, T wave inversion less evident in Lateral leads Confirmed by JASON PARK ([id number]) on 09/05/2017 8:54:21 PM Referred By: STEPAN Confirmed By:JASON PARK
[2017-09-05] MEDS ORDERED: ASPIRIN 81 MG CHEW PO ONE (17:35)
--- NOTE | 2017-09-05 17:39 | ER Report ---
History and Physical Time Seen By MD: 17:16 Hx. of Stated Complaint: stroke like symptoms, sugar 35 on scene HPI/ROS CHIEF COMPLAINT: Low blood sugar HISTORY OF PRESENT ILLNESS: 76-year-old male patient presents to the emergency room via EMS with complaint of feeling on. Patient states that he was talking with his on the phone. He states that he passed out. He states when he woke up this ever sitting around him. EMS states that family was concerned that the patient had a stroke and called EMS. When they got there he was negative for the [place] stroke scale, however he was having a hard time following instructions. I did check his blood sugar at which time they noted that was 35. They did give him an amp of D50. After that the patient should return to normal. They state that he was making sense, he was able to follow instructions. Family did want him evaluated for any problems. They did note in transit to that his heart was doing something funny, but did put him on a 12- lead. They did see some ST changes, however there unable to ascertain whether there was new or old. Patient denies having complaints of this time. REVIEW OF SYSTEMS: Respiratory: No cough, no dyspnea. Cardiovascular: No chest pain, no palpitations. Gastrointestinal: No vomiting, no abdominal pain. Musculoskeletal: No back pain. Allergies: Coded Allergies: Penicillins (Verified Allergy, Mild, REACTION TO INJECTION, 09/05/17) Home Meds Active Scripts Ondansetron (ZOFRAN ODT) 4 Mg Tab.rapdis, 4 MG PO Q6H Y for NAUSEA/VOMITING, # 20 TAB.JEANNE 0 Refills Prov:LAMBERT HAYDEN MD 09/04/17 Rivaroxaban 20 Mg (XARELTO 20 MG) 20 Mg Tablet, 20 MG PO QDAY, #30 TAB Prov:JASON PARK DO 07/30/17 Reported Medications Nitroglycerin (NITROGLYCERIN) 0.4 Mg Tab.subl, 0.4 MG SL Q5MIN 09/04/17 Metoprolol Succinate (METOPROLOL SUCCINATE) 50 Mg Tab.er.24h, 1 TAB PO QDAY, TAB 09/04/17 Glimepiride (GLIMEPIRIDE) 4 Mg Tablet, 4 MG PO QDAY 07/29/17 Atorvastatin Calcium (LIPITOR) 10 Mg Tablet, 1 TAB PO QDAY, TAB 07/29/17 Past Medical/Surgical History Patient has a past medical history of TIA, OH, angina, hypertension, hyperlipidemia, pneumonia, diverticulosis, occasional heartburn, hiatal hernia, leg fracture, right cataract, diabetes, alcohol use. Patient has surgical history of TB repair. Patient has a family medical history of stroke, diabetes. Reviewed Nurses Notes: Yes Hx Smoking: Yes Smoking Status: Former Smoker Exposure to Second Hand Smoke?: No Hx Substance Use Disorder: No Hx Alcohol Use: Yes Constitutional Vital Sign - Last 24 Hours 09/05/17 09/05/17 09/05/17 09/05/17 17:22 17:30 17:46 17:51 Temp 97.9 Pulse 70 64 ??? Resp 14 19 19 B/P (MAP) 134/93 134/93 (107) Pulse Ox 94 95 92 O2 Delivery Room Air 09/05/17 09/05/17 09/05/17 09/05/17 17:56 18:01 18:05 18:06 Pulse ? 72 Pulse Ox 98 O2 Flow Rate 2.0 09/05/17 09/05/17 09/05/17 09/05/17 18:07 18:11 18:21 18:26 Pulse 74 74 73 B/P (MAP) 145/86 (105) Pulse Ox 98 99 98 09/05/17 09/05/17 09/05/17 09/05/17 18:30 18:36 18:44 18:46 Pulse 70 73 B/P (MAP) 143/74 (97) 138/89 (105) Pulse Ox 92 91 09/05/17 18:51 Pulse 61 Pulse Ox 98 Physical Exam General Appearance: The patient is alert, has no immediate need for airway protection and no current signs of toxicity. ENT: Tympanic membranes are pearly-alexis, auditory canals are patent, mucous membranes are moist. Respiratory: Chest is non tender, lungs are clear to auscultation. Cardiac: regular rate and rhythm Gastrointestinal: Abdomen is soft and non tender, no masses, bowel sounds normal. Musculoskeletal: Neck: Neck is supple and non tender. Extremities have full range of motion and are non tender. Skin: No rashes or lesions. Neuro: Patient is alert and oriented 4, cranial nerves II through XII grossly intact. DIFFERENTIAL DIAGNOSIS: After history and physical exam differential diagnosis was considered for hyperglycemia, syncopal episode, OH. Medical Decision Making Data Points Result Diagram: 09/05/17 1741 09/05/17 1741 Laboratory Hematology Test 09/05/17 17:41 09/05/17 18:35 09/05/17 18:43 Red Blood Count 4.69 M/uL (4.00-5.60) Mean Corpuscular Volume 91.2 fL (80.0-96.0) Mean Corpuscular Hemoglobin 31.8 pg (26.0-33.0) Mean Corpuscular Hemoglobin Concent 34.8 g/dL (32.0-36.0) Red Cell Distribution Width 13.6 % (11.5-14.5) Mean Platelet Volume 10.9 fL (7.2-11.1) Neutrophils (%) (Auto) 70.0 % (39.4-72.5) Lymphocytes (%) (Auto) 17.1 % (17.6-49.6) Monocytes (%) (Auto) 10.5 % (4.1-12.4) Eosinophils (%) (Auto) 2.1 % (0.4-6.7) Basophils (%) (Auto) 0.3 % (0.3-1.4) Nucleated RBC Relative Count (auto) 0.1 /100WBC Neutrophils # (Auto) 5.0 K/uL (2.0-7.4) Lymphocytes # (Auto) 1.2 K/uL (1.3-3.6) Monocytes # (Auto) 0.7 K/uL (0.3-1.0) Eosinophils # (Auto) 0.1 K/uL (0.0-0.5) Basophils # (Auto) 0.0 K/uL (0.0-0.1) Nucleated RBC Absolute Count (auto) 0.00 K/uL Sodium Level 141 mmol/L (137-145) Potassium Level 3.5 mmol/L (3.5-5.0) Chloride Level 102 mmol/L (98-107) Carbon Dioxide Level 28 mmol/L (22-30) Blood Urea Nitrogen 27 mg/dl (9-21) Creatinine 1.20 mg/dl (0.66-1.25) Glomerular Filtration Rate Calc 58.9 Random Glucose 63 mg/dl (75-110) Calcium Level 8.5 mg/dl (8.4-10.2) Total Bilirubin 0.7 mg/dl (0.2-1.3) Aspartate Amino Transf (AST/SGOT) 30 U/L (0-35) Alanine Aminotransferase (ALT/SGPT) 35 U/L (0-56) Alkaline Phosphatase 81 U/L (0-126) Troponin I < 0.012 ng/ml Total Protein 6.7 gm/dl (6.3-8.2) Albumin 3.4 g/dl (3.5-5.0) Whole Blood Glucose 64 mg/DL (75-110) Urine Color Yellow Urine Clarity Clear Urine pH 6.0 pH (4.8-9.5) Urine Specific [place] 1.019 Urine Protein 100 mg/dL (NEGATIVE) Urine Glucose (UA) 150 mg/dL (NEGATIVE) Urine Ketones Negative mg/dL (NEGATIVE) Urine Blood Small (NEGATIVE) Urine Nitrite Negative (NEGATIVE) Urine Bilirubin Negative (NEGATIVE) Urine Urobilinogen 4.0 mg/dL (0.2-1.9) Urine Leukocyte Esterase Negative (NEGATIVE) Urine RBC 3 /HPF (0-2/HPF) Urine WBC 1 /HPF (0-5/HPF) Urine Squamous Epithelial Cells Moderate /LPF (</=FEW) Urine Bacteria Negative /HPF (NONE-FEW) Urine Hyaline Casts Few /LPF (NONE-FEW) Urine Mucus None /HPF (NONE-FEW) Urine Opiates Screen Negative Urine Barbiturates Screen Negative Ur Tricyclic Antidepressants Screen Negative Urine Phencyclidine Screen Negative Urine Amphetamines Screen Negative Urine Benzodiazepines Screen Negative Urine Cocaine Screen Negative Urine Cannabinoids Screen Negative Chemistry Test 09/05/17 17:41 09/05/17 18:35 09/05/17 18:43 White Blood Count 7.1 k/uL (4.5-11.0) Red Blood Count 4.69 M/uL (4.00-5.60) Hemoglobin 14.9 g/dL (14.0-18.0) Hematocrit 42.7 % (42.0-52.0) Mean Corpuscular Volume 91.2 fL (80.0-96.0) Mean Corpuscular Hemoglobin 31.8 pg (26.0-33.0) Mean Corpuscular Hemoglobin Concent 34.8 g/dL (32.0-36.0) Red Cell Distribution Width 13.6 % (11.5-14.5) Platelet Count 78 K/uL (150-450) Mean Platelet Volume 10.9 fL (7.2-11.1) Neutrophils (%) (Auto) 70.0 % (39.4-72.5) Lymphocytes (%) (Auto) 17.1 % (17.6-49.6) Monocytes (%) (Auto) 10.5 % (4.1-12.4) Eosinophils (%) (Auto) 2.1 % (0.4-6.7) Basophils (%) (Auto) 0.3 % (0.3-1.4) Nucleated RBC Relative Count (auto) 0.1 /100WBC Neutrophils # (Auto) 5.0 K/uL (2.0-7.4) Lymphocytes # (Auto) 1.2 K/uL (1.3-3.6) Monocytes # (Auto) 0.7 K/uL (0.3-1.0) Eosinophils # (Auto) 0.1 K/uL (0.0-0.5) Basophils # (Auto) 0.0 K/uL (0.0-0.1) Nucleated RBC Absolute Count (auto) 0.00 K/uL Glomerular Filtration Rate Calc 58.9 Calcium Level 8.5 mg/dl (8.4-10.2) Total Bilirubin 0.7 mg/dl (0.2-1.3) Aspartate Amino Transf (AST/SGOT) 30 U/L (0-35) Alanine Aminotransferase (ALT/SGPT) 35 U/L (0-56) Alkaline Phosphatase 81 U/L (0-126) Troponin I < 0.012 ng/ml Total Protein 6.7 gm/dl (6.3-8.2) Albumin 3.4 g/dl (3.5-5.0) Whole Blood Glucose 64 mg/DL (75-110) Urine Color Yellow Urine Clarity Clear Urine pH 6.0 pH (4.8-9.5) Urine Specific [place] 1.019 Urine Protein 100 mg/dL (NEGATIVE) Urine Glucose (UA) 150 mg/dL (NEGATIVE) Urine Ketones Negative mg/dL (NEGATIVE) Urine Blood Small (NEGATIVE) Urine Nitrite Negative (NEGATIVE) Urine Bilirubin Negative (NEGATIVE) Urine Urobilinogen 4.0 mg/dL (0.2-1.9) Urine Leukocyte Esterase Negative (NEGATIVE) Urine RBC 3 /HPF (0-2/HPF) Urine WBC 1 /HPF (0-5/HPF) Urine Squamous Epithelial Cells Moderate /LPF (</=FEW) Urine Bacteria Negative /HPF (NONE-FEW) Urine Hyaline Casts Few /LPF (NONE-FEW) Urine Mucus None /HPF (NONE-FEW) Urine Opiates Screen Negative Urine Barbiturates Screen Negative Ur Tricyclic Antidepressants Screen Negative Urine Phencyclidine Screen Negative Urine Amphetamines Screen Negative Urine Benzodiazepines Screen Negative Urine Cocaine Screen Negative Urine Cannabinoids Screen Negative Toxicology Test 09/05/17 18:43 Urine Opiates Screen Negative Urine Barbiturates Screen Negative Ur Tricyclic Antidepressants Screen Negative Urine Phencyclidine Screen Negative Urine Amphetamines Screen Negative Urine Benzodiazepines Screen Negative Urine Cocaine Screen Negative Urine Cannabinoids Screen Negative Urinalysis Test 09/05/17 18:43 Urine Color Yellow Urine Clarity Clear Urine pH 6.0 pH (4.8-9.5) Urine Specific [place] 1.019 Urine Protein 100 mg/dL (NEGATIVE) Urine Glucose (UA) 150 mg/dL (NEGATIVE) Urine Ketones Negative mg/dL (NEGATIVE) Urine Blood Small (NEGATIVE) Urine Nitrite Negative (NEGATIVE) Urine Bilirubin Negative (NEGATIVE) Urine Urobilinogen 4.0 mg/dL (0.2-1.9) Urine Leukocyte Esterase Negative (NEGATIVE) Urine RBC 3 /HPF (0-2/HPF) Urine WBC 1 /HPF (0-5/HPF) Urine Squamous Epithelial Cells Moderate /LPF (</=FEW) Urine Bacteria Negative /HPF (NONE-FEW) Urine Hyaline Casts Few /LPF (NONE-FEW) Urine Mucus None /HPF (NONE-FEW) EKG/Imaging EKG Interpretation 12 lead EKG: Rhythm: Atrial fibrillation [place]: normal QRS: Left anterior fascicular block ST segments: normal Imaging Examination: CHEST PA AND LAT Comparison: 09/04/2017 and earlier History: Chest pain. Findings: No new or enlarging consolidation or nodule. No evidence of acute peribronchial inflammation. No pneumothorax, edema, or effusion. Cardiac and hilar contour size is within normal limits. Osseous structures are intact. IMPRESSION: No evidence of acute cardiopulmonary disease. Report Dictated By: Dilip Jade MD at 09/05/2017 7:43 PM Report E-Signed By: Dilip Jade MD at 09/05/2017 7:44 PM ED Course/Re-evaluation ED Course 09/05/2017 6:20:26 pm discussed with patient and family that the patient is having significant amounts of hypoglycemia, that his blood sugar dropped from 250 as checked by EMS and 90 and then down to 63. Patient is currently started on D5NS at 125 cc an hour. I discussed with patient and family that I'm concerned about his blood sugar, I'm concerned that he may take into much of glipizide. Patient states that he did not take too much of glipizide. He states that he believes that the gael cracker cookies that he was eating may have been laced. He states that he ate one couple of days ago in his tongue went numb , he had one today and again his tongue went numb. He is concerned that there may been cocaine in the cookies. We will go ahead and test a urine drug screen. Patient was admitted and examined, history and physical were obtained. Differential diagnoses were considered. On examination patient is alert and oriented. A whole blood glucose was done, a CBC, CMP, urinalysis, drug screen. The blood glucose came back at 91. That was approximately 30 minutes after he received the amp of D50. When the CMP came back the blood glucose was 63. At that time we started D5NS at 125 an hour. We rechecked him at 1830. At that time he was still running right at 60 with his blood sugar. Rate was increased to 200 cc per hour. Rechecking a prior to admission for the blood sugar was 63. The CBC and urinalysis was unremarkable. Patient actually did have 150 glucose in his urine. Drug screen was completely negative. Chest x-ray showed no acute findings. EKG showed atrial fibrillation with a left block. Troponin was negative. I discussed the findings with the patient. I stated that due to the decreased blood sugar on that I will like to admit the patient so that we can continue to give him IV glucose to keep his blood sugar. Patient and the family verbalized agreement. I spoke with Dr. Park, hospitalist, who agreed to accept the patient for admission. Decision to Disposition Date: Sep 05, 2017 Decision to Disposition Time: 19:10 Depart Departure Latest Vital Signs Vital Signs Date Time Temp Pulse Resp B/P (MAP) Pulse Ox O2 Delivery O2 Flow Rate FiO2 09/05/17 18:51 61 98 09/05/17 18:44 138/89 (105) 09/05/17 18:05 2.0 09/05/17 17:51 19 09/05/17 17:22 97.9 Room Air Impression: Primary Impression: Hypoglycemia Condition: Improved Disposition: Admitted from ER Referrals: JORGE SCHWARZP (PCP) STEPAN LEE Sep 05, 2017 17:39
[2017-09-05 17:52] LABS: PLATELET COUNT, AUTOMATED 78 K/uL (150-450)
[2017-09-05] MEDS ORDERED: D5NS 500 ML BAG 500 ML IV ONE (17:55)
[2017-09-05] MEDS ORDERED: ACETAMINOPHEN 500 MG TAB PO ONE (18:55)
--- NOTE | 2017-09-05 19:48 | RADIOLOGY IMAGING REPORT ---
FACILITY: [facility] PATIENT NAME: Erick Montes : 1940 MR: [id number] V: [id number] EXAM DATE: ORDERING PHYSICIAN: STEPAN LEE TECHNOLOGIST: Location: [facility] Patient: Erick Montes : 1940 Visit/Account:[id number] Date of Sevice: 09/05/2017 Examination: CHEST PA AND LAT Comparison: 09/04/2017 and earlier History: Chest pain. Findings: No new or enlarging consolidation or nodule. No evidence of acute peribronchial inflammatio n. No pneumothorax, edema, or effusion. Cardiac and hilar contour size is within normal limits. [place] structures are intact. IMPRESSION: No evidence of acute cardiopulmonary disease. Report Dictated By: Dilip Jade MD at 09/05/2017 7:43 PM Report E-Signed By: Dilip Jade MD at 09/05/2017 7:44 PM WSN:[id number]
--- NOTE | 2017-09-05 20:54 | History & Physical ---
History of Present Illness Chief Complaint Altered mental status History of Present Illness This patient presented to the emergency room after being found down by family. EMS noted that his sugar was 30 in the field. It improved after D50, but was back down to 60 on arrival to the emergency room. He reports that he has had diarrhea, nausea, and vomiting over the past 2 days. He continued to take his glimepiride despite the decreased oral intake. History Problems: (1) Type 2 diabetes mellitus Status: Chronic (2) GERD (gastroesophageal reflux disease) (3) Hyperlipidemia Status: Chronic (4) CVA (cerebral vascular accident) Home Meds Active Scripts Ondansetron (ZOFRAN ODT) 4 Mg Tab.rapdis, 4 MG PO Q6H Y for NAUSEA/VOMITING, # 20 TAB.JEANNE 0 Refills Prov:LAMBERT HAYDEN MD 09/04/17 Rivaroxaban 20 Mg (XARELTO 20 MG) 20 Mg Tablet, 20 MG PO QDAY, #30 TAB Prov:JASON PARK DO 07/30/17 Reported Medications Nitroglycerin (NITROGLYCERIN) 0.4 Mg Tab.subl, 0.4 MG SL Q5MIN 09/04/17 Metoprolol Succinate (METOPROLOL SUCCINATE) 50 Mg Tab.er.24h, 1 TAB PO QDAY, TAB 09/04/17 Glimepiride (GLIMEPIRIDE) 4 Mg Tablet, 4 MG PO QDAY 07/29/17 Atorvastatin Calcium (LIPITOR) 10 Mg Tablet, 1 TAB PO QDAY, TAB 07/29/17 Allergies: Coded Allergies: Penicillins (Verified Allergy, Mild, REACTION TO INJECTION, 09/05/17) Hx Smoking: Yes Smoking Status: Former Smoker Exposure to Second Hand Smoke?: No Caffeine Intake: Coffee, Tea Caffeine/Cups Per Day: occassionally Hx Alcohol Use: Yes Hx Substance Use Disorder: No Review of Systems All Systems Reviewed/Normal: Yes, Except as Noted Neurological: Confusion Exam Vital Signs Vital Signs Date Time Temp Pulse Resp B/P (MAP) Pulse Ox O2 Delivery O2 Flow Rate FiO2 09/05/17 19:26 70 99 09/05/17 19:00 161/131 (141) 09/05/17 18:05 2.0 09/05/17 17:51 19 09/05/17 17:22 97.9 Room Air Neuro: No Gross deficits Eyes: PERRLA Cardiovascular: Regular Rate and Rhythm Respiratory: Clear to Auscultation GI: Abd Soft and Non-Tender Extremities: No Edema Integumentary: No Cyanosis Medical Decision Making Data Points Result Diagram: 09/05/17174009/05/171740 Assessment and Plan Problems: (1) Hypoglycemia Status: Acute Assessment & Plan: He did present with altered mental status and his glucose was 30 in the field. He improved some after D50, but his sugars continue to decrease without support. This is likely secondary to his glimepiride and viral gastroenteritis. We will place him on a D5 infusion overnight and monitor his sugars. (2) Viral gastroenteritis Assessment & Plan: He has had diarrhea, nausea, and vomiting over the last 48hrs, but he reports that his symptoms have been resolving through today. (3) Type 2 diabetes mellitus Status: Chronic Assessment & Plan: He is on chronic treatment with glimepiride, and had been doing well on this until the last several days. We have held this medication until his sugars stabilize. (4) Atrial fibrillation Assessment & Plan: He is on chronic treatment with Xarelto. Copies to: JORGE SCHWARZ Venous Thromboembolism Antithrombotics Is Pt On Any Antithrombotics?: Yes Exam Sepsis Risk: No Definite Risk JASON PARK DO Sep 05, 2017 20:54
[2017-09-05] MEDS: ATORVASTATIN 10 MG TAB PO SCH (22:31)
[2017-09-05 22:32] VITALS: BP 130/68
[2017-09-05] MEDS: D5NS(*) 1000 ML BAG 1,000 ML IV PRN (22:59)
[2017-09-06 03:29] VITALS: BP 118/65
[2017-09-06] MEDS ORDERED: DEXTROSE 50% 50 ML SYR IVP ONE (04:05)
[2017-09-06 07:15] VITALS: BP 126/64
--- NOTE | 2017-09-06 08:05 | Hospitalist Progress Note ---
Subjective Progress Notes Subjective Patient admitted for hypoglycemia. He required several doses of D50 last night. Patient Complains of: Cardiovascular: No: Chest Pain Respiratory: No: Shortness of Breath Physical Exam Vital Signs Date Time Temp Pulse Resp B/P (MAP) Pulse Ox O2 Delivery O2 Flow Rate FiO2 09/06/17 03:29 97.7 51 18 118/65 (82) 94 09/05/17 22:32 Nasal Cannula 2.0 General Appearance: Alert, Awake, No Acute Distress, Afebrile Cardiovascular: Regular Rate and Rhythm Respiratory: No Respiratory Distress Psych: Alert & Oriented X3, Appropriate Mood & Affect Result Diagram: 09/05/17 1741 09/06/17 0729 Assessment and Plan Problems: (1) Hypoglycemia Status: Acute Assessment & Plan: He did present with altered mental status and his glucose was 30 in the field. He improved some after D50, but his sugars continue to decrease without support. This is likely secondary to his glimepiride and viral gastroenteritis. He has been on a D5 infusion and has received D50 overnight. His sugars are now starting to correct. Continue to hold glimepiride. (2) Viral gastroenteritis Assessment & Plan: He has had diarrhea, nausea, and vomiting over the last 48hrs, but he reports that his symptoms have been resolving through today. (3) Type 2 diabetes mellitus Status: Chronic Assessment & Plan: He is on chronic treatment with glimepiride, and had been doing well on this until the last several days. We have held this medication until his sugars stabilize. (4) Atrial fibrillation Assessment & Plan: He is on chronic treatment with Xarelto. Exam Sepsis Risk: No Definite Risk JASON PARK DO Sep 06, 2017 08:05
[2017-09-06] MEDS: RIVAROXABAN 10 MG TAB PO SCH (08:59)
[2017-09-06] MEDS: METOPROLOL SUCC XL 50 MG TABCR 50 MG TAB.ER.24H PO SCH (08:59)
[2017-09-06] MEDS: D5NS(*) 1000 ML BAG 1,000 ML IV PRN (11:09)
[2017-09-06 11:30] VITALS: BP 125/68
[2017-09-06 11:59] VITALS: Ht 165.1 cm; Wt 62.2 kg
[2017-09-06 16:04] VITALS: BP 133/62
[2017-09-06] MEDS: ATORVASTATIN 10 MG TAB PO SCH (21:16)
[2017-09-07] MEDS: D5NS(*) 1000 ML BAG 1,000 ML IV PRN (01:31)
[2017-09-07 04:40] VITALS: BP 139/74
[2017-09-07] MEDS ORDERED: GLIM4TAB50 PO (05:54)
--- NOTE | 2017-09-07 06:08 | Hospitalist Depart ---
Discharge Summary Reason for Hosp/Final Diag: (1) Hypoglycemia Status: Acute Hospital Course & Plan: He did present with altered mental status and his glucose was 30 in the field. He improved some after an amp of D50, but his sugars continued to decrease without support. This is likely secondary to his glimepiride and poor intake with the viral gastroenteritis. He was maintained on a dextrose infusion for the first 24 hours. He was taking oral well and his glucoses did stabilize. We will resume his glimepiride at half of his usual dose (now 2mg daily). He will monitor his glucoses closely and follow up with his primary care provider (Eileen FLANAGAN) in the next week. (2) Viral gastroenteritis Hospital Course & Plan: He had diarrhea, nausea, and vomiting for approximately 48hrs prior to admission. His symptoms resolved during his stay and he was eating and drinking normally. (3) Type 2 diabetes mellitus Status: Chronic Hospital Course & Plan: He has been on chronic treatment with glimepiride. We held this medication until his sugars stabilized. He will now resume his glimepiride at 2mg daily and follow up closely with his primary care provider. (4) Atrial fibrillation Hospital Course & Plan: He is on chronic treatment with Xarelto and metoprolol. Departure Weight (Pounds): 137 Weight (Ounces): 3.0 Result Diagram: 09/05/17174009/06/17 0729 Item Value Date Time Sodium Level 141 mmol/L 09/05/17 1741 Potassium Level 3.5 mmol/L 09/05/17 1741 Chloride Level 102 mmol/L 09/05/17 1741 Carbon Dioxide Level 28 mmol/L 09/05/17 1741 Blood Urea Nitrogen 27 mg/dl H 09/05/17 1741 Creatinine 1.20 mg/dl 09/05/17 1741 Glomerular Filtration Rate Calc 58.9 09/05/17 1741 Random Glucose 63 mg/dl L 09/05/17 1741 Calcium Level 8.5 mg/dl 09/05/17 1741 Total Bilirubin 0.7 mg/dl 09/05/17 1741 Aspartate Amino Transf (AST/SGOT) 30 U/L 09/05/17 1741 Alanine Aminotransferase (ALT/SGPT) 35 U/L 09/05/17 1741 Alkaline Phosphatase 81 U/L 09/05/17 1741 Troponin I < 0.012 ng/ml 09/05/17 1741 Total Protein 6.7 gm/dl 09/05/17 1741 Albumin 3.4 g/dl L 09/05/17 1741 Whole Blood Glucose 64 mg/DL L 09/05/17 1835 Whole Blood Glucose 62 mg/DL L 09/05/17 1922 Whole Blood Glucose 56 mg/DL L 09/05/17 2006 Random Glucose 42 mg/dl *L 09/05/17 2250 Whole Blood Glucose 102 mg/DL 09/06/17 0001 Whole Blood Glucose 59 mg/DL L 09/06/17 0401 Whole Blood Glucose 75 mg/DL 09/06/17 0530 Calcium Level 8.3 mg/dl L 09/06/17 0729 Random Glucose 61 mg/dl L 09/06/17 0729 Glomerular Filtration Rate Calc > 60.0 09/06/17 0729 Creatinine 0.80 mg/dl 09/06/17 0729 Blood Urea Nitrogen 18 mg/dl 09/06/17 0729 Carbon Dioxide Level 25 mmol/L 09/06/17 0729 Chloride Level 107 mmol/L 09/06/17 0729 Potassium Level 3.6 mmol/L 09/06/17 0729 Sodium Level 140 mmol/L 09/06/17 0729 Whole Blood Glucose 61 mg/DL L 09/06/17 0810 Whole Blood Glucose 68 mg/DL L 09/06/17 0904 Whole Blood Glucose 64 mg/DL L 09/06/17 1138 Whole Blood Glucose 96 mg/DL 09/06/17 1603 Whole Blood Glucose 92 mg/DL 09/06/172012 Whole Blood Glucose 108 mg/DL 09/07/17 0012 Whole Blood Glucose 123 mg/DL H 09/07/17 0438 Urine Color Yellow 09/05/17 1843 Urine Clarity Clear 09/05/17 184 Urine pH 6.0 pH 09/05/17 184 Urine Specific [place] 1.019 09/05/17 184 Urine Protein 100 mg/dL 09/05/17 184 Urine Glucose (UA) 150 mg/dL H 09/05/17 184 Urine Ketones Negative mg/dL 09/05/17 184 Urine Blood Small 09/05/17 1843 Urine Nitrite Negative 09/05/17 184 Urine Bilirubin Negative 09/05/171842 Urine Urobilinogen 4.0 mg/dL H 09/05/171842 Urine Leukocyte Esterase Negative 09/05/171842 Urine RBC 3 /HPF 09/05/171842 Urine WBC 1 /HPF 09/05/171842 Urine Squamous Epithelial Cells Moderate /LPF H 09/05/17 184 Urine Bacteria Negative /HPF 09/05/171842 Urine Hyaline Casts Few /LPF 09/05/171842 Urine Mucus None /HPF 09/05/171842 Urine Cannabinoids Screen Negative 09/05/171842 Urine Cocaine Screen Negative 09/05/171842 Urine Benzodiazepines Screen Negative 09/05/171842 Urine Amphetamines Screen Negative 09/05/171842 Urine Phencyclidine Screen Negative 09/05/171842 Ur Tricyclic Antidepressants Screen Negative 09/05/171842 Urine Barbiturates Screen Negative 09/05/171842 Urine Opiates Screen Negative 09/05/171842 Influenza Virus Type A (PCR) Negative 09/04/17 09 Influenza Virus Type B (PCR) Negative 09/04/17 0908 [facility] *LIVE* [address] [place] [address] EDITH AYON M.D., DIRECTOR OF LABORATORY SERVICES ROLANDO VARNER M.D., PATHOLOGIST RUN DATE: 09/06/17 Specimen Inquiry Report PAGE 1 RUN TIME: 1500 PATIENT: REMA PICKENS ACCT: [id number] LOC: [facility]OTHY U : [id number] AGE/SX: 76/M ROOM: REG : 09/04/[address]: LAMBERT HAYDEN MD : 1940 BED: DIS : STATUS: DEP ER TLOC: SPEC #: [id number] BRIANNA: 09/04/17 STATUS: [place] REQ #: [id number] RECD: 09/04/[address] [facility] [address]: LAMBERT HAYDEN MD SOURCE: CCMS ENTR: 09/04/[address] [facility] [address]: JORGE SCHWARZP SPDESC: ORDERED: CULT URINE Procedure Result Verified URINE CULTURE Final 09/06/17-1500 <No reportable results for this procedure> Imaging PATIENT NAME: Rema Pickens : 1940 MR: [id number] V: [id number] EXAM DATE: ORDERING PHYSICIAN: STEPAN LEE TECHNOLOGIST: Location: [facility] - [place] Patient: Rema Pickens : 1940 Visit/Account:[id number] Date of Sevice: 09/05/2017 Examination: CHEST PA AND LAT Comparison: 09/04/2017 and earlier History: Chest pain. Findings: No new or enlarging consolidation or nodule. No evidence of acute peribronchial inflammation. No pneumothorax, edema, or effusion. Cardiac and hilar contour size is within normal limits. Osseous structures are intact. IMPRESSION: No evidence of acute cardiopulmonary disease. Report Dictated By: Dilip Jade MD at 09/05/2017 7:43 PM Report E-Signed By: Dilip Jade MD at 09/05/2017 7:44 PM [id number] EKG PATIENT NAME: REMA PICKENS : [id number] MR: [id number] V: [id number] EXAM DATE: ORDERING PHYSICIAN: STEPAN LEE TECHNOLOGIST: ALBERTO Underwood Reason : NEURO Blood Pressure : / mmHG Vent. Rate : 067 BPM Atrial Rate : 064 BPM P-R Int : 000 ms QRS Dur : 118 ms QT Int : 430 ms P-R-T Axes : 000 -52 085 degrees QTc Int : 454 ms Atrial fibrillation with a competing junctional pacemaker Left anterior fascicular block Abnormal ECG When compared with ECG of 04-SEP-2017 11:52, T wave inversion less evident in Lateral leads Confirmed by JASON PARK ([id number]) on 09/05/2017 8:54:21 PM Referred By: STEPAN Confirmed By:JASON PARK Condition: Improved Discharge: Home, Self Care Follow-Up Labs: Finger Sticks (Four times daily (AC and HS)) Time Spent: > 30 min Discharge Instructions Home Meds Active Scripts Glimepiride (GLIMEPIRIDE) 4 Mg Tablet, 2 MG PO QDAY, #30 TAB 1 Refill One-half tab daily (2mg). Prov:JASON JENKINS MD 09/07/17 Rivaroxaban 20 Mg (XARELTO 20 MG) 20 Mg Tablet, 20 MG PO QDAY, #30 TAB Prov:JASON PARK DO 07/30/17 Reported Medications Nitroglycerin (NITROGLYCERIN) 0.4 Mg Tab.subl, 0.4 MG SL Q5MIN 09/04/17 Metoprolol Succinate (METOPROLOL SUCCINATE) 50 Mg Tab.er.24h, 1 TAB PO QDAY, TAB 09/04/17 Atorvastatin Calcium (LIPITOR) 10 Mg Tablet, 1 TAB PO QDAY, TAB 07/29/17 Discontinued Scripts Ondansetron (ZOFRAN ODT) 4 Mg Tab.rapdis, 4 MG PO Q6H Y for NAUSEA/VOMITING, # 20 TAB.JEANNE 0 Refills Prov:LAMBERT HAYDEN MD 09/04/17 Diet: Diabetic Activity: As Tolerated, No Exertion Special Instructions: Follow up with Eileen FLANAGAN ine next 5-7 days or sooner if any problems. Bring diary of glucose readings to all appointments. Copies to: JORGE SCHWARZ Venous Thromboembolism Antithrombotics Is Pt On Any Antithrombotics?: Yes JASON JENKINS MD Sep 07, 2017 06:08
[2017-09-07 07:23] VITALS: BP 132/77
[2017-09-07] MEDS: METOPROLOL SUCC XL 50 MG TABCR 50 MG TAB.ER.24H PO SCH (08:05)
[2017-09-07] MEDS: RIVAROXABAN 10 MG TAB PO SCH (08:06)
[2017-09-07] MEDS ORDERED: INFLUENZA VIRUS VAC 0.5 ML SYR IM ONLY ONE (09:00)
[2017-09-07] MEDS ORDERED: GLIMEPIRIDE 2 MG TAB PO SCH (09:00)
== END 2017-09-07 05:55 | disposition home or self-care (01) ==
LOC: ER 17:21 → INTOOBSV 18:52 → MED 18:52
PROVIDERS: ADMIT Family Medicine; ATTEND Family Medicine
DX: E11.649 Type 2 diabetes mellitus with hypoglycemia without coma (principal); R41.82 Altered mental status, unspecified; R11.2 Nausea with vomiting, unspecified; R19.7 Diarrhea, unspecified; K52.9 Noninfective gastroenteritis and colitis, unspecified; I48.2 Chronic atrial fibrillation; Z79.01 Long term (current) use of anticoagulants
CPT/HCPCS: 36415; 36416; 71046; 80305; 81001; 82948; 84484; 85025; 93005; 99285; A9270; G0378; J7042; 82040; 82247; 82310; 82374; 82435; 82565; 82947; 84075; 84132; 84155; 84295; 84450; 84460; 84520

== ENCOUNTER → 2017-09-05 | Outpatient (CLI) | payer MEDICARE, MEDICAID ==
[~2017-09-05] MED LIST changes: +METO50TA19 PO; +NITR0.4T3 SL; +ONDA4TAB PO
[2017-09-06 11:59] VITALS: BMI 22.8
== END ==
LOC: AMB 16:44
PROVIDERS: ATTEND Nurse Practitioner
DX: R20.0 Anesthesia of skin (principal); E16.2 Hypoglycemia, unspecified
CPT/HCPCS: A0425; A0427

== ENCOUNTER → 2017-09-12 | Outpatient (CLI) | payer MEDICARE, MEDICAID ==
[2017-07-30 09:01] VITALS: BMI 22.8
[~2017-09-12] MED LIST changes: +REGADENOSON 0.4 MG/5 ML SYR ONE
[2017-09-12 11:24] LABS: LDL CHOLESTEROL 44 mg/dl
--- NOTE | 2017-09-12 15:40 | RADIOLOGY IMAGING REPORT ---
FACILITY: [facility] PATIENT NAME: Erick Montes : 1940 MR: [id number] V: [id number] EXAM DATE: ORDERING PHYSICIAN: PAUL BALDERAS TECHNOLOGIST: Location: [facility] - [place] Patient: Erick Montes : 1940 Visit/Account:[id number] Date of Sevice: 09/12/2017 EXAMINATION: Single isotope SPECT imaging with regadenoson infusion and gated SPECT imaging. DATE OF EXAMINATION: September 12, 2017. DATE OF INTERPRETATION: September 12, 2017. REQUESTING PHYSICIAN: PAUL BALDERAS. INDICATION: The patient is a 76-year-old female evaluated for CAD. PROCEDURE: After informed consent the patient received an intravenous injection of 12.6 mCi of Tc-99 m sestamibi followed at an appropriate time interval by rest imaging. The patient then subsequently received an intravenous infusion of 0.4 mg of regadenoson per protocol without complication. Resting heart rate was 67 bpm with a peak heart rate of 80 bpm. Blood pressure at rest was 150 / 94 and fol lowing infusion was 150 / 94. Baseline EKG demonstrates atrial fibrillation with frequent PVCs and a n interventricular conduction delay. There were no diagnostic EKG changes of ischemia following infu hilary. Symptoms were nonspecific. The patient then received an intravenous injection of 29.7 mCi of Tc-99m sestamibi followed by stress imaging. RAW DATA: Examination of the summed raw data revealed a good quality study. MYOCARDIAL PERFUSION: The tomographic images demonstrate fairly normal perfusion at rest. At peak st ress there is a small to medium-sized anteroapical defect that is mild in degree. This suspicious for mid LAD disease.. GATED IMAGES: The gated images demonstrate an ejection fraction of 55%. There are no significant wal l motion abnormalities.. IMPRESSION: 1. Baseline EKG shows atrial fibrillation with PVCs and an interventricular conduction delay. Restin g images are fairly normal. Stress images show an anteroapical defect that is moderate in size and mi ld in degree. It is suspicious for mid LAD disease. 2. Abnormal myocardial perfusion scan. 3. Normal LV systolic function; LVEF 55%. 4. Based on the results of this exam, the patient appears to be at intermediate risk for future cardi ovascular events. Report Dictated By: Hema Rosario MD at 09/12/2017 3:32 PM Report E-Signed By: Hema Rosario MD at 09/12/2017 3:35 PM WSN:[id number]
== END ==
LOC: RESP 02:27
PROVIDERS: ATTEND Internal Medicine Cardiovascular Disease
DX: R07.2 Precordial pain (principal); I48.1 Persistent atrial fibrillation; E78.00 Pure hypercholesterolemia, unspecified
CPT/HCPCS: 36415; 78452; 84443; 85027; 93017; A9500; J2785; 82040; 82247; 82310; 82374; 82435; 82465; 82565; 82947; 83718; 84075; 84132; 84155; 84295; 84450; 84460; 84478; 84520

== ENCOUNTER → 2017-10-03 | Outpatient (CLI) | payer MEDICARE, MEDICAID ==
[2017-09-06 11:59] VITALS: BMI 22.8
[~2017-10-03] MED LIST changes: -REGADENOSON 0.4 MG/5 ML SYR ONE
--- NOTE | 2017-10-05 16:08 | RT HOLTER TEST ---
[place] [facility] [place] REMA PICKENS : [id number] MR: [id number] V: [id number] EXAM DATE: ORDERING PHYSICIAN: SHAY TOBIAS TECHNOLOGIST: SHARLA Hook-up date: 2017-10-03 10:15:00 Duration: 47:37:00 Test Indications: AFIB Medications: 101022 QRS complexes 3458 Ventricular ectopics which represent 1 % of total QRS comp. * Supraventricular ectopics which represent % of total QRS comp. * Paced QRS complexes which represent % of total QRS comp. VENTRICULAR ECTOPY 3452 Isolated 746 Bigeminal Cycles 3 Couplets 0 Runs 0 Beats in Runs * Beats LONGEST at * BPM at :: -- * Beats FASTEST at * BPM at :: -- SUPRAVENTRICULAR ECTOPY * Isolated * Couplets * Runs * Beats in Runs * Beats LONGEST at * BPM at :: -- * Beats FASTEST at * BPM at :: -- HEART RATES 38 MIN at 22:54:39 2017-10-03 66 AVG 117 MAX at 16:03:12 2017-10-04 LONGEST RR 2.520 secs at 13:17:57 2017-10-03 S-T LEVELS Channel 1 -12.800 mm MIN at 10:15:00 2017-10-03 -12.800 mm MAX at 10:15:00 2017-10-03 Channel 2 -12.800 mm MIN at 10:15:00 2017-10-03 -12.800 mm MAX at 10:15:00 2017-10-03 Channel 3 -12.800 mm MIN at 10:15:00 2017-10-03 -12.800 mm MAX at 10:15:00 2017-10-03 The patient's underlying rhythm is atrial fibrillation/flutter. Maximum heart rate was 117 beats per minute (BPM) and minimum heart rate was 38 BPM (both a fib/flutter). There were multiple diary recordings all of which correlated with atrial fib/f lutter with rates between 64 to 92 BPM. Ventricular ectopy: 3452 isolated, 3 couplets, 746 beats of bigeminy. No SVE noted. Confirmed by KATLYN PARHAM ([id number]) on 10/05/2017 4:08:23 PM Referred By: Overread By: KATLYN PARHAM
== END ==
LOC: RESP 09:51
PROVIDERS: ATTEND Internal Medicine Cardiovascular Disease
DX: I48.1 Persistent atrial fibrillation (principal); R42 Dizziness and giddiness; I48.92 Unspecified atrial flutter
CPT/HCPCS: 93225; 93226

== ENCOUNTER → 2017-12-17 | Outpatient (CLI) | payer MEDICARE, MEDICAID ==
[2017-09-06 11:59] VITALS: BMI 22.8
--- NOTE | 2017-12-17 12:36 | RADIOLOGY IMAGING REPORT ---
FACILITY: [facility] PATIENT NAME: Erick Montes : 1940 MR: [id number] V: [id number] EXAM DATE: ORDERING PHYSICIAN: JORGE SCHWARZ TECHNOLOGIST: Location: [facility] - [place] Patient: Erick Montes : 1940 Visit/Account:[id number] Date of Sevice: 12/17/2017 Technique: CHEST PA AND LAT HISTORY: Cough Comparison studies: Chest radiographs September 05, 2017 FINDINGS: The lungs are clear. No pleural effusion. The cardiac silhouette is unchanged. IMPRESSION: 1. No acute cardiopulmonary process. Report Dictated By: Tye Clark DO at 12/17/2017 12:30 PM Report E-Signed By: Tye Clark DO at 12/17/2017 12:33 PM WSN:[id number]
== END ==
LOC: RAD 11:14
PROVIDERS: ATTEND Nurse Practitioner Family
DX: R05 Cough (principal); R06.02 Shortness of breath
CPT/HCPCS: 71046

== ENCOUNTER 2018-04-06 18:58 | Emergency (ER) | payer MEDICARE, MEDICAID ==
[2017-09-06 11:59] VITALS: Wt 64.9 kg
[2018-04-06] MEDS ORDERED: APIX2.5T PO (19:09)
--- NOTE | 2018-04-06 19:24 | EKG ---
FACILITY: [facility] - [place] PATIENT NAME: REMA PICKENS : [id number] MR: [id number] V: [id number] EXAM DATE: ORDERING PHYSICIAN: ONUR JASSO TECHNOLOGIST: SHARLA Test Reason : CP Blood Pressure : / mmHG Vent. Rate : 072 BPM Atrial Rate : 077 BPM P-R Int : 000 ms QRS Dur : 104 ms QT Int : 414 ms P-R-T Axes : 000 -62 083 degrees QTc Int : 453 ms Atrial fibrillation Left axis deviation Left anterior fasicular block Abnormal ECG When compared with ECG of 05-SEP-2017 17:21, No significant change was found Confirmed by Frederic Castanon ([id number]) on 04/06/2018 7:49:51 PM Referred By: Confirmed By:Frederic Callaway
[2018-04-06 19:28] LABS: PLATELET COUNT, AUTOMATED 95 K/uL (150-450)
--- NOTE | 2018-04-06 19:42 | ER Report ---
History and Physical Time Seen By MD: 19:09 Hx. of Stated Complaint: pt started having chst pain 30 mins ago. he took 2 nitros. started feeling relief after the second nitro. states the pain has now gone away. previous ID last june HPI/ROS CHIEF COMPLAINT: chest pain HISTORY OF PRESENT ILLNESS: At approximately 1840 patient was sitting at home watching TV when he developed left-sided chest pain that radiates to his left arm. Patient took a nitroglycerin and pain did not resolve so he took a second nitroglycerin and called his to bring him to the ED. Pain ultimately resolved approximately 20 minutes after onset and has not recurred. Pain is pressure-like and does not radiate to the back. Pain was moderate in intensity. Patient gets similar pain 1-2 times a week and it is usually relieved by nitroglycerin. Pain is not typically associated with exertion. Patient is confused as to whether he has had an ID in the past but believes he had a stroke in June 2017. Patient does not believe he has had a cardiac catheterization before but had a stress test in the last 6 months that he believes was normal. There are no other new or different symptoms with today's pain. Patient denies shortness of breath, diaphoresis, nausea, new weakness, leg pain or swelling. Patient is on elequis and does have known atrial fibrillation. REVIEW OF SYSTEMS: Constitutional: No fever, no chills. Eyes: No discharge. ENT: No sore throat. Cardiovascular: chest pain Respiratory: No cough, no shortness of breath. Gastrointestinal: No abdominal pain, no vomiting. Genitourinary: No hematuria. Musculoskeletal: No back pain. Skin: No rashes. Neurological: No headache. Remainder of the 14 system rev: Yes Allergies: Coded Allergies: Penicillins (Verified Allergy, Mild, REACTION TO INJECTION, 09/05/17) Home Meds Active Scripts Glimepiride (GLIMEPIRIDE) 4 Mg Tablet, 2 MG PO QDAY, #30 TAB 1 Refill One-half tab daily (2mg). Prov:JASON JENKINS MD 09/07/17 Reported Medications Apixaban (ELIQUIS) 2.5 Mg Tablet, 4 MG PO BID 04/06/18 Nitroglycerin (NITROGLYCERIN) 0.4 Mg Tab.subl, 0.4 MG SL Q5MIN 09/04/17 Atorvastatin Calcium (LIPITOR) 10 Mg Tablet, 1 TAB PO QDAY, TAB 07/29/17 Discontinued Reported Medications Metoprolol Succinate (METOPROLOL SUCCINATE) 50 Mg Tab.er.24h, 1 TAB PO QDAY, TAB 09/04/17 Discontinued Scripts Rivaroxaban 20 Mg (XARELTO 20 MG) 20 Mg Tablet, 20 MG PO QDAY, #30 TAB Prov:JASON PARK DO 07/30/17 Reviewed Nurses Notes: Yes Old Medical Records Reviewed: Yes Hx Smoking: Yes Smoking Status: Former Smoker Exposure to Second Hand Smoke?: No Hx Substance Use Disorder: No Hx Alcohol Use: Yes Constitutional Vital Sign - Last 24 Hours 04/06/18 04/06/18 04/06/18 04/06/18 19:00 19:01 19:03 19:15 Temp 97.9 Pulse ??? 72 72 Resp 18 10 B/P (MAP) 121/77 (92) 121/77 136/80 (98) Pulse Ox 92 94 04/06/18 04/06/18 04/06/18 04/06/18 19:30 19:45 20:00 20:15 Pulse 69 69 70 72 Resp 18 8 15 8 B/P (MAP) 126/80 (95) 113/73 (86) 133/85 (101) 128/62 (84) Pulse Ox 92 94 04/06/18 04/06/18 04/06/18 04/06/18 20:30 20:30 20:45 20:45 Pulse 67 67 67 67 Resp 7 7 10 10 B/P (MAP) 116/75 (89) 116/75 (89) 119/70 (86) 119/70 (86) 04/06/18 04/06/18 04/06/18 04/06/18 21:00 21:15 21:30 21:35 Pulse 65 71 60 66 Resp 17 8 11 21 B/P (MAP) 112/95 (101) 132/79 (96) 125/85 (98) 04/06/18 04/06/18 04/06/18 04/06/18 21:40 21:45 21:50 21:55 Pulse 59 66 62 62 Resp 12 28 11 11 B/P (MAP) 127/78 (94) 04/06/18 04/06/18 04/06/18 04/06/18 22:00 22:05 22:10 22:15 Pulse 60 63 66 65 Resp 12 0 0 15 B/P (MAP) 124/68 (86) 147/73 (97) 04/06/18 04/06/18 04/06/18 04/06/18 22:20 22:25 22:30 22:35 Pulse 67 75 ??? 66 Resp 12 7 11 11 B/P (MAP) 140/68 (92) Pulse Ox 94 86 04/06/18 22:40 Pulse 70 Resp 15 Physical Exam General Appearance: [The patient is alert, has no immediate need for airway protection and no signs of toxicity.] [ ] Eyes: Pupils equal and round no pallor or injection. ENT, Mouth: Mucous membranes are moist. Respiratory: There are no retractions, lungs are clear to auscultation. Cardiovascular: irregular rhythm. No murmurs. No carotid bruit Gastrointestinal: Abdomen is soft and non tender, no masses, bowel sounds normal. Neurological: alert, oriented, nad Skin: Warm and dry, no rashes. Musculoskeletal: Neck is supple non tender. Extremities are nontender, nonswollen and have full range of motion. [ ] DIFFERENTIAL DIAGNOSIS: After history and physical exam differential diagnosis was considered for chest pain including but not limited to myocardial ischemia, pericarditis pulmonary embolus, chest wall pain, pleural inflammation and pulmonary infectious causes, Aortic dissection. Medical Decision Making Data Points Result Diagram: 04/06/18190904/06/181909 Laboratory Hematology Test 04/06/18 19:10 04/06/18 22:35 Red Blood Count 5.47 M/uL (4.00-5.60) Mean Corpuscular Volume 90.4 fL (80.0-96.0) Mean Corpuscular Hemoglobin 31.3 pg (26.0-33.0) Mean Corpuscular Hemoglobin Concent 34.6 g/dL (32.0-36.0) Red Cell Distribution Width 13.8 % (11.5-14.5) Mean Platelet Volume 10.5 fL (7.2-11.1) Neutrophils (%) (Auto) 49.1 % (39.4-72.5) Lymphocytes (%) (Auto) 35.3 % (17.6-49.6) Monocytes (%) (Auto) 10.8 % (4.1-12.4) Eosinophils (%) (Auto) 3.8 % (0.4-6.7) Basophils (%) (Auto) 1.0 % (0.3-1.4) Nucleated RBC Relative Count (auto) 0.0 /100WBC Neutrophils # (Auto) 3.8 K/uL (2.0-7.4) Lymphocytes # (Auto) 2.7 K/uL (1.3-3.6) Monocytes # (Auto) 0.8 K/uL (0.3-1.0) Eosinophils # (Auto) 0.3 K/uL (0.0-0.5) Basophils # (Auto) 0.1 K/uL (0.0-0.1) Nucleated RBC Absolute Count (auto) 0.00 K/uL Sodium Level 142 mmol/L (137-145) Potassium Level 4.2 mmol/L (3.5-5.0) Chloride Level 100 mmol/L (98-107) Carbon Dioxide Level 33 mmol/L (22-30) Blood Urea Nitrogen 20 mg/dl (9-21) Creatinine 1.30 mg/dl (0.66-1.25) Glomerular Filtration Rate Calc 53.5 Random Glucose 109 mg/dl (75-110) Calcium Level 9.3 mg/dl (8.4-10.2) Total Bilirubin 1.0 mg/dl (0.2-1.3) Aspartate Amino Transf (AST/SGOT) 40 U/L (0-35) Alanine Aminotransferase (ALT/SGPT) 27 U/L (0-56) Alkaline Phosphatase 95 U/L (0-126) Total Protein 7.7 g/dl (6.3-8.2) Albumin 4.0 g/dl (3.5-5.0) Lipase 162 U/L (23-300) Troponin I 0.012 ng/ml Chemistry Test 04/06/18 19:10 04/06/18 22:35 White Blood Count 7.7 k/uL (4.5-11.0) Red Blood Count 5.47 M/uL (4.00-5.60) Hemoglobin 17.1 g/dL (14.0-18.0) Hematocrit 49.5 % (42.0-52.0) Mean Corpuscular Volume 90.4 fL (80.0-96.0) Mean Corpuscular Hemoglobin 31.3 pg (26.0-33.0) Mean Corpuscular Hemoglobin Concent 34.6 g/dL (32.0-36.0) Red Cell Distribution Width 13.8 % (11.5-14.5) Platelet Count 95 K/uL (150-450) Mean Platelet Volume 10.5 fL (7.2-11.1) Neutrophils (%) (Auto) 49.1 % (39.4-72.5) Lymphocytes (%) (Auto) 35.3 % (17.6-49.6) Monocytes (%) (Auto) 10.8 % (4.1-12.4) Eosinophils (%) (Auto) 3.8 % (0.4-6.7) Basophils (%) (Auto) 1.0 % (0.3-1.4) Nucleated RBC Relative Count (auto) 0.0 /100WBC Neutrophils # (Auto) 3.8 K/uL (2.0-7.4) Lymphocytes # (Auto) 2.7 K/uL (1.3-3.6) Monocytes # (Auto) 0.8 K/uL (0.3-1.0) Eosinophils # (Auto) 0.3 K/uL (0.0-0.5) Basophils # (Auto) 0.1 K/uL (0.0-0.1) Nucleated RBC Absolute Count (auto) 0.00 K/uL Glomerular Filtration Rate Calc 53.5 Calcium Level 9.3 mg/dl (8.4-10.2) Total Bilirubin 1.0 mg/dl (0.2-1.3) Aspartate Amino Transf (AST/SGOT) 40 U/L (0-35) Alanine Aminotransferase (ALT/SGPT) 27 U/L (0-56) Alkaline Phosphatase 95 U/L (0-126) Total Protein 7.7 g/dl (6.3-8.2) Albumin 4.0 g/dl (3.5-5.0) Lipase 162 U/L (23-300) Troponin I 0.012 ng/ml EKG/Imaging EKG Interpretation 12 lead EKG: Rhythm: atrial fibrillation [place]: left axis QRS: rbbb ST segments: flipped T v1, 2, avl. No st elevations or depressions [ ] Monitor Interpretation: Atrial Fibrillation Imaging X-ray: chest was obtained. I viewed the images myself on the PACS system. My interpretation of the images is: NACPD. The radiologist interpretation had no clinically significant variation from this interpretation. ED Course/Re-evaluation ED Course Patient remains pain free during ED stay. Patient presents with pain similar to episodes that he has multiple times a week though states that today he took 2 nitroglycerin when normally takes one nitroglycerin. Patient did not have exertional pain today. After consideration of risks and benefits will repeat second troponin at 3 hours. Serial troponins and EKGs do not show evidence of acute coronary syndrome. Patient does have heart score of 4, however has had stress test in the past 6 months. I offered admission for further observation versus discharge and close follow-up. Patient is comfortable with discharge and close follow-up and understand risks and benefits. This is not unreasonable and he understands his low but not negligible risk for acute coronary syndrome. Procedure ED ECHO - I performed bedside ultrasound. Atrial fibrillation noted. No large focal cardiac wall abnormality. Aortic root less than 4 cm. Left ventricle greater than right ventricle. No significant pericardial effusion. Decision to Disposition Date: Apr 06, 2018 Decision to Disposition Time: 23:16 Depart Departure Latest Vital Signs Vital Signs Date Time Temp Pulse Resp B/P (MAP) Pulse Ox O2 Delivery O2 Flow Rate FiO2 04/06/18 22:40 70 15 04/06/18 22:30 140/68 (92) 86 04/06/18 19:03 97.9 Impression: Primary Impression: Chest pain Condition: Improved Disposition: HOME OR SELF-CARE Referrals: JORGE SCHWARZ (PCP) Patient Instructions: Chest Pain (ED) Problem Qualifiers Primary Impression: Chest pain Chest pain type: unspecified Qualified Codes: R07.9 - Chest pain, unspecified ONUR JASSO MD Apr 06, 2018 19:42
--- NOTE | 2018-04-06 19:47 | RADIOLOGY IMAGING REPORT ---
FACILITY: [facility] - [place] PATIENT NAME: Erick Montes : 1940 MR: [id number] V: [id number] EXAM DATE: ORDERING PHYSICIAN: ONUR JASSO TECHNOLOGIST: Location: [facility] [place] Patient: Erick Montes : 1940 Visit/Account:[id number] Date of Sevice: 04/06/2018 EXAMINATION: Portable AP Chest 04/06/2018 7:18 PM HISTORY: chest pain COMPARISON: 12/17/2017 FINDINGS: Cardiomediastinal contours: Stable heart size. Mitral annular calcifications. Aorta is atherosclero tic. Lungs and pleura: No acute finding. Minimal scarring along left heart border. Bones/soft tissues: AC joint spurring. IMPRESSION: No acute cardiopulmonary abnormality. Report Dictated By: Cirilo Maier MD at 04/06/2018 7:42 PM Report E-Signed By: Cirilo Maier MD at 04/06/2018 7:43 PM WSN:[id number]
[2018-04-06 22:30] VITALS: BP 140/68
--- NOTE | 2018-04-07 03:41 | EKG ---
FACILITY: [facility] - [place] PATIENT NAME: REMA PICKENS : [id number] MR: [id number] V: [id number] EXAM DATE: ORDERING PHYSICIAN: ONUR JASSO TECHNOLOGIST: ERIN Underwood Reason : cp Blood Pressure : / mmHG Vent. Rate : 070 BPM Atrial Rate : 202 BPM P-R Int : 000 ms QRS Dur : 108 ms QT Int : 428 ms P-R-T Axes : 000 -62 088 degrees QTc Int : 462 ms Atrial fibrillation Left ais deviation Left anterior fascicular block Abnormal ECG When compared with ECG of 06-APR-2018 19:04, No significant change was found Confirmed by Frederic Castanon ([id number]) on 04/07/2018 6:27:59 AM Referred By: LOUISA Confirmed By:Frederic Callaway
== END 2018-04-06 23:24 | disposition home or self-care (01) ==
LOC: ER 19:06
DX: I48.91 Unspecified atrial fibrillation (principal); R94.31 Abnormal electrocardiogram [ECG] [EKG]; I44.4 Left anterior fascicular block
CPT/HCPCS: 36415; 71045; 82040; 82247; 82310; 82374; 82435; 82565; 82947; 83690; 84075; 84132; 84155; 84295; 84450; 84460; 84484; 84520; 85025; 93005; 99284

== ENCOUNTER → 2018-04-09 | Outpatient (CLI) | payer MEDICARE, MEDICAID ==
[2017-09-06 11:59] VITALS: BMI 22.8
[~2018-04-09] MED LIST changes: +APIX2.5T PO
== END ==
LOC: LAB 08:12
PROVIDERS: ATTEND Internal Medicine Cardiovascular Disease
DX: I48.1 Persistent atrial fibrillation (principal); E78.00 Pure hypercholesterolemia, unspecified

== ENCOUNTER → 2018-04-09 | Outpatient (CLI) | payer MEDICARE, MEDICAID ==
[2017-09-06 11:59] VITALS: BMI 22.8
[2018-04-09 08:52] LABS: LDL CHOLESTEROL 53 mg/dl
== END ==
LOC: LAB 08:08
PROVIDERS: ATTEND Nurse Practitioner Family
DX: E11.9 Type 2 diabetes mellitus without complications (principal); E78.5 Hyperlipidemia, unspecified
CPT/HCPCS: 36415; 82040; 82247; 82310; 82374; 82435; 82465; 82565; 82947; 83036; 83718; 84075; 84132; 84155; 84295; 84450; 84460; 84478; 84520

== ENCOUNTER → 2018-04-15 | Outpatient (CLI) | payer MEDICARE, MEDICAID ==
[2017-09-06 11:59] VITALS: BMI 22.8
== END ==
LOC: US 01:15
PROVIDERS: ATTEND Internal Medicine Cardiovascular Disease
DX: I05.1 Rheumatic mitral insufficiency (principal); R29.898 Other symptoms and signs involving the musculoskeletal system; I07.1 Rheumatic tricuspid insufficiency
CPT/HCPCS: 93306

== ENCOUNTER 2018-08-20 11:51 | Emergency (ER) | payer MEDICARE, MEDICAID ==
[2017-09-06 11:59] VITALS: Wt 63.0 kg
[2018-08-20 11:55] VITALS: BP 141/76
--- NOTE | 2018-08-20 12:16 | ER Report ---
History and Physical Time Seen By MD: 12:00 Hx. of Stated Complaint: CHEST PAIN (ONUR HANNON MD) HPI/ROS CHIEF COMPLAINT: Chest pain HISTORY OF PRESENT ILLNESS: Patient is a 77 year old male with complaint of left sided chest pain that began while washing dishes; the pain lasted for approximate 10 minutes and then resolved after the patient took 2 of his sublingual nitroglycerin. Patient has prior history for stroke and is anticoagulated on Eliquis. Patient currently has no chest pain or pressure or symptoms at this time. But because of his stroke history he was concerned so he presented to the emergency department for evaluation. Patient had no slurring of his speech no unilateral weakness more just pain. Patient is a former smoker quitting 19 years ago. No history of any other illicit drug use. Patient recently had some teeth removed and does have some faint bruising to his right maxillary full. He denies any swallowing of blood or other problems with blood in the stools or urine at this time. REVIEW OF SYSTEMS: Constitutional: No fever, no chills. Eyes: No discharge. ENT: No sore throat. Cardiovascular: chest pain, now resolved Respiratory: No cough, no shortness of breath. Gastrointestinal: No abdominal pain, no vomiting. Genitourinary: No hematuria. Musculoskeletal: No back pain. Skin: No rashes. Neurological: No headache. (ONUR HANNON MD) Allergies: Coded Allergies: Penicillins (Verified Allergy, Mild, REACTION TO INJECTION, 09/05/17) Home Meds Active Scripts Glimepiride (GLIMEPIRIDE) 4 Mg Tablet, 2 MG PO QDAY, #30 TAB 1 Refill One-half tab daily (2mg). Prov:JASON JENKINS MD 09/07/17 Reported Medications Apixaban (ELIQUIS) 2.5 Mg Tablet, 4 MG PO BID 04/06/18 Nitroglycerin (NITROGLYCERIN) 0.4 Mg Tab.subl, 0.4 MG SL Q5MIN 09/04/17 Atorvastatin Calcium (LIPITOR) 10 Mg Tablet, 1 TAB PO QDAY, TAB 07/29/17 Past Medical/Surgical History Prior history of type II diabetes, stroke on Eliqus, history of atrial fibril lation; angina, no history of prior [place] (ONUR HANNON MD) Hx Smoking: Yes Smoking Status: Former Smoker Exposure to Second Hand Smoke?: No Hx Substance Use Disorder: No Hx Alcohol Use: Yes (ONUR HANNON MD) Constitutional Vital Sign - Last 24 Hours 08/20/18 11:55 Pulse 64 Resp 18 B/P (MAP) 141/76 Pulse Ox 93 O2 Delivery Room Air (BRIAN,OG V DO) Physical Exam General Appearance: The patient is alert, has no immediate need for airway protection and no signs of toxicity. Eyes: Pupils equal and round no pallor or injection. ENT, Mouth: Mucous membranes are moist. The right maxillary fold there is some ecchymosis that is purplish turning to yellow, and color Respiratory: There are no retractions, lungs are clear to auscultation. Cardiovascular: Heart is irregularly irregular Gastrointestinal: Abdomen is soft and non tender, no masses, bowel sounds isabella l. Neurological: Awake and alert Skin: Warm and dry, no rashes. Musculoskeletal: Neck is supple non tender. Extremities are nontender, nonswollen and have full range of motion. No focal motor weakness noted on exam. (ONUR HANNON MD) Medical Decision Making Data Points Result Diagram: 08/20/18 1230 08/20/18 1230 Laboratory Hematology Test 08/20/18 12:30 08/20/18 16:13 Red Blood Count 4.83 M/uL (4.00-5.60) Mean Corpuscular Volume 93.1 fL (80.0-96.0) Mean Corpuscular Hemoglobin 31.2 pg (26.0-33.0) Mean Corpuscular Hemoglobin Concent 33.5 g/dL (32.0-36.0) Red Cell Distribution Width 13.2 % (11.5-14.5) Mean Platelet Volume 11.5 fL (7.2-11.1) Neutrophils (%) (Auto) 59.5 % (39.4-72.5) Lymphocytes (%) (Auto) 26.1 % (17.6-49.6) Monocytes (%) (Auto) 11.1 % (4.1-12.4) Eosinophils (%) (Auto) 2.8 % (0.4-6.7) Basophils (%) (Auto) 0.5 % (0.3-1.4) Nucleated RBC Relative Count (auto) 0.0 /100WBC Neutrophils # (Auto) 3.2 K/uL (2.0-7.4) Lymphocytes # (Auto) 1.4 K/uL (1.3-3.6) Monocytes # (Auto) 0.6 K/uL (0.3-1.0) Eosinophils # (Auto) 0.2 K/uL (0.0-0.5) Basophils # (Auto) 0.0 K/uL (0.0-0.1) Nucleated RBC Absolute Count (auto) 0.00 K/uL Prothrombin Time 16.6 seconds (12.0-14.4) Prothromb Time International Ratio 1.33 Activated Partial Thromboplast Time 33 seconds (23-35) Sodium Level 140 mmol/L (137-145) Potassium Level 4.4 mmol/L (3.5-5.0) Chloride Level 113 mmol/L (98-107) Carbon Dioxide Level 28 mmol/L (22-30) Blood Urea Nitrogen 23 mg/dl (9-21) Creatinine 1.00 mg/dl (0.66-1.25) Glomerular Filtration Rate Calc > 60.0 Random Glucose 138 mg/dl (75-110) Calcium Level 8.1 mg/dl (8.4-10.2) Total Bilirubin 1.1 mg/dl (0.2-1.3) Aspartate Amino Transf (AST/SGOT) 21 U/L (0-35) Alanine Aminotransferase (ALT/SGPT) 26 U/L (0-56) Alkaline Phosphatase 78 U/L (0-126) B-Type Natriuretic Peptide 136 pg/ml (0-100) Total Protein 6.6 g/dl (6.3-8.2) Albumin 3.4 g/dl (3.5-5.0) Troponin I < 0.012 ng/ml Chemistry Test 08/20/18 12:30 08/20/18 16:13 White Blood Count 5.4 k/uL (4.5-11.0) Red Blood Count 4.83 M/uL (4.00-5.60) Hemoglobin 15.1 g/dL (14.0-18.0) Hematocrit 44.9 % (42.0-52.0) Mean Corpuscular Volume 93.1 fL (80.0-96.0) Mean Corpuscular Hemoglobin 31.2 pg (26.0-33.0) Mean Corpuscular Hemoglobin Concent 33.5 g/dL (32.0-36.0) Red Cell Distribution Width 13.2 % (11.5-14.5) Platelet Count 96 K/uL (150-450) Mean Platelet Volume 11.5 fL (7.2-11.1) Neutrophils (%) (Auto) 59.5 % (39.4-72.5) Lymphocytes (%) (Auto) 26.1 % (17.6-49.6) Monocytes (%) (Auto) 11.1 % (4.1-12.4) Eosinophils (%) (Auto) 2.8 % (0.4-6.7) Basophils (%) (Auto) 0.5 % (0.3-1.4) Nucleated RBC Relative Count (auto) 0.0 /100WBC Neutrophils # (Auto) 3.2 K/uL (2.0-7.4) Lymphocytes # (Auto) 1.4 K/uL (1.3-3.6) Monocytes # (Auto) 0.6 K/uL (0.3-1.0) Eosinophils # (Auto) 0.2 K/uL (0.0-0.5) Basophils # (Auto) 0.0 K/uL (0.0-0.1) Nucleated RBC Absolute Count (auto) 0.00 K/uL Prothrombin Time 16.6 seconds (12.0-14.4) Prothromb Time International Ratio 1.33 Activated Partial Thromboplast Time 33 seconds (23-35) Glomerular Filtration Rate Calc > 60.0 Calcium Level 8.1 mg/dl (8.4-10.2) Total Bilirubin 1.1 mg/dl (0.2-1.3) Aspartate Amino Transf (AST/SGOT) 21 U/L (0-35) Alanine Aminotransferase (ALT/SGPT) 26 U/L (0-56) Alkaline Phosphatase 78 U/L (0-126) B-Type Natriuretic Peptide 136 pg/ml (0-100) Total Protein 6.6 g/dl (6.3-8.2) Albumin 3.4 g/dl (3.5-5.0) Troponin I < 0.012 ng/ml Coagulation Test 08/20/18 12:30 Prothrombin Time 16.6 seconds Prothromb Time International Ratio 1.33 Activated Partial Thromboplast Time 33 seconds (OG TORRES V DO) EKG/Imaging EKG Interpretation EKG shows atrial fibrillation with occasional PVCs [address]. [address] segment or T-wave abnormalities are noted Imaging FACILITY: [facility] - [place] PATIENT NAME: Erick Montes : 1940 MR: [id number] V: [id number] EXAM DATE: ORDERING PHYSICIAN: ONUR HANNON TECHNOLOGIST: Location: [facility] Patient: Erick Montes : 1940 Visit/Account:[id number] Date of Sevice: 08/20/2018 Exam type: CHEST PA LAT History: Shortness of breath, dry cough Comparison: April 06, 2018. Findings: The lungs are free of acute effusions, infiltrates or edema. There is mild peribronchial thickening in the lower lung gomez that appears chronic. The cardiac silhouette is normal in size. IMPRESSION: 1. There is mild chronic peribronchial thickening the lower lung gomez Report Dictated By: Emmie Crawford MD at 08/20/2018 1:42 PM Report E-Signed By: Emmie Crawford MD at 08/20/2018 1:43 PM WSN:[email or web address] (ONUR HANNON MD) ED Course/Re-evaluation ED Course 08/20/2018 12:15:31 pm time is to initiate cardiac workup with a delta troponin in 4 hours. 08/20/2018 1:15:18 pm patient continues to remain pain-free now repeat a troponin at approximately 4 PM. Continued observation until then. 08/20/2018 2:43:33 pm patient continues to do well and had some questions with regards diagnosis, it is my opinion that this patient had a angina exacerbation that was controlled at home with his nitroglycerin. Patient does not have any signs or symptoms of stroke at this time. We will continue to observe and repeat four-hour troponin (ONUR HANNON MD) ED Course 08/20/2018 4:49:23 pm PTs second troponin is negative. Pt has had no cp since the 10 minute episode prior to arrival. Pt just saw his correctional substance abuse counselor a month ago and is not due for 6 months. Told to follow up with cardiology and return if symptoms reoccur prior to seeing your doctor. Decision to Disposition Date: Aug 20, 2018 Decision to Disposition Time: 16:50 (OG TORRES DO) Depart Departure Latest Vital Signs Vital Signs Date Time Temp Pulse Resp B/P (MAP) Pulse Ox O2 Delivery O2 Flow Rate FiO2 08/20/18 11:55 64 18 141/76 93 Room Air (OG TORRES DO) Impression: Primary Impression: Stable angina Condition: Improved Disposition: HOME OR SELF-CARE Referrals: JORGE SCHWARZ (PCP) Patient Instructions: Angina (ED) Additional Instructions: Follow up with your doctor. Continue your current medications. Return if symptoms reoccur or worsen. ONUR HANNON MD Aug 20, 2018 12:16 OG TORRES DO Aug 20, 2018 16:51
--- NOTE | 2018-08-20 12:19 | EKG ---
FACILITY: [facility] - [place] PATIENT NAME: REMA PICKENS : [id number] MR: [id number] V: [id number] EXAM DATE: ORDERING PHYSICIAN: ONUR HANNON TECHNOLOGIST: SUSIE Underwood Reason : CP Blood Pressure : / mmHG Vent. Rate : 065 BPM Atrial Rate : 073 BPM P-R Int : 000 ms QRS Dur : 108 ms QT Int : 458 ms P-R-T Axes : 000 -55 094 degrees QTc Int : 476 ms Atrial fibrillation with premature ventricular or aberrantly conducted complexes Left anterior fascicular block Prolonged QT Abnormal ECG When compared with ECG of 06-APR-2018 21:44, Right bundle branch block is no longer present Confirmed by JASON PARK ([id number]) on 08/21/2018 6:06:33 AM Referred By: RIDDHI Confirmed By:JASON PARK
[2018-08-20 12:38] LABS: PLATELET COUNT, AUTOMATED 96 K/uL (150-450)
[2018-08-20 12:46] LABS: INR 1.33
--- NOTE | 2018-08-20 13:50 | RADIOLOGY IMAGING REPORT ---
FACILITY: [facility] PATIENT NAME: Erick Montes : 1940 MR: [id number] V: [id number] EXAM DATE: ORDERING PHYSICIAN: ONUR HANNON TECHNOLOGIST: Location: [facility] - [place] Patient: Erick Montes : 1940 Visit/Account:[id number] Date of Sevice: 08/20/2018 Exam type: CHEST PA LAT History: Shortness of breath, dry cough Comparison: April 06, 2018. Findings: The lungs are free of acute effusions, infiltrates or edema. There is mild peribronchial thickening in the lower lung gomez that appears chronic. The cardiac silhouette is normal in size. IMPRESSION: 1. There is mild chronic peribronchial thickening the lower lung gomez Report Dictated By: Emmie Crawford MD at 08/20/2018 1:42 PM Report E-Signed By: Emmie Crawford MD at 08/20/2018 1:43 PM WSN:[email or web address]
[2018-08-20] MEDS ORDERED: EMS NS 0.9%(*) 1000 ML BAG 1,000 ML IV ONE (15:00)
== END 2018-08-20 17:04 | disposition home or self-care (01) ==
LOC: ER 12:10
DX: I20.9 Angina pectoris, unspecified (principal); Z79.01 Long term (current) use of anticoagulants
CPT/HCPCS: 36415; 71046; 82040; 82247; 82310; 82374; 82435; 82565; 82947; 83880; 84075; 84132; 84155; 84295; 84450; 84460; 84484; 84520; 85025; 85610; 85730; 93005; 96360; 99284

== ENCOUNTER → 2018-08-20 | Outpatient (CLI) | payer MEDICARE, MEDICAID ==
[2017-09-06 11:59] VITALS: BMI 22.8
== END ==
LOC: AMB 11:22
PROVIDERS: ATTEND Nurse Practitioner
DX: R07.9 Chest pain, unspecified (principal); R07.89 Other chest pain; R53.1 Weakness; I10 Essential (primary) hypertension; E11.9 Type 2 diabetes mellitus without complications
CPT/HCPCS: A0425; A0427

== ENCOUNTER 2018-11-26 02:52 | Emergency (ER) | payer MEDICARE, MEDICAID ==
[2017-09-06 11:59] VITALS: Wt 63.1 kg
--- NOTE | 2018-11-26 03:04 | ER Report ---
History and Physical Time Seen By MD: 03:04 HPI/ROS CHIEF COMPLAINT: Concern about possible silent AK HISTORY OF PRESENT ILLNESS: This is a 78-year-old male. He was working in the yard on Sunday and suddenly felt dizzy and lightheaded. At the time he also had cold sweats headache. [place] little short of breath. And then he started to have a little bit of right shoulder pain. He took a nitroglycerin and the pain went away. Still felt poorly the rest the day. Also on Sunday had some of the same symptoms. Tonight his family was telling him that they were worried the he might of had a silent AK. He does have a history of coronary artery disease and has stable angina. Because of this he decided he needed to come in to get checked out. He has had similar symptoms when he had walking pneumonia in the past. He has not been having any shortness of breath. He has no chest pain. Currently is asymptomatic. The only other complaint he has is having chills every day about an hour after he takes his blood thinner, Eliquis. Had a little nausea during the episode on Sunday as well. Generalized weakness for the last few days. REVIEW OF SYSTEMS: Constitutional: As above. Eyes: No vision changes. ENT: No sore throat. Chronic allergic sinus congestion Cardiovascular: No chest pain. No palpitations. Respiratory: As above. Gastrointestinal: No abdominal pain. No blood in the stools. Genitourinary: No problems with urination recently, no blood in the urine. Musculoskeletal: No back pain. Skin: No rashes. Neurological: No numbness. Allergies: Coded Allergies: Penicillins (Verified Allergy, Mild, REACTION TO INJECTION, 11/26/18) Home Meds Active Scripts Glimepiride (GLIMEPIRIDE) 4 Mg Tablet, 2 MG PO QDAY, #30 TAB 1 Refill One-half tab daily (2mg). Prov:JASON JENKINS MD 09/07/17 Reported Medications Apixaban (ELIQUIS) 2.5 Mg Tablet, 4 MG PO BID 04/06/18 Nitroglycerin (NITROGLYCERIN) 0.4 Mg Tab.subl, 0.4 MG SL Q5MIN 09/04/17 Atorvastatin Calcium (LIPITOR) 10 Mg Tablet, 1 TAB PO QDAY, TAB 1/14/18 Reviewed Nurses Notes: Yes Hx Smoking: Yes Smoking Status: Former Smoker Exposure to Second Hand Smoke?: No Hx Substance Use Disorder: No Hx Alcohol Use: Yes Constitutional Physical Exam General Appearance: The patient is alert. No acute distress. Eyes: Pupils are equal, round. No pallor, injection or icterus. ENT: Mucous membranes are moist. Normal oral mucosa. Posterior oropharynx is normal. Normal nasal mucosa. Normal tympanic membranes and canals. Neck: Supple and non tender. Respiratory: Lungs are clear to auscultation. Cardiovascular: Regular rate and rhythm. No murmurs, gallops or rubs. Normal capillary refill. No edema. Gastrointestinal: Abdomen is soft and non tender. Nondistended. Normal active bowel sounds. No costovertebral angle tenderness with percussion. Neurological: Alert and oriented x3. Cranial nerves II through XII show no acute deficits on my exam. No focal neurologic deficits in the extremities. Skin: Warm and dry. No rashes. Musculoskeletal: Extremities are nontender. No tenderness in palpation of the cervical, thoracic and lumbar spine. DIFFERENTIAL DIAGNOSIS: After history and physical exam, differential diagnosis was considered for including but not limited to myocardial ischemia, pericarditis pulmonary embolus, chest wall pain, pleural inflammation and pulmonary infectious causes. Medical Decision Making Data Points Laboratory Hematology Test 11/26/18 03:00 Red Blood Count 4.81 M/uL (4.00-5.60) Mean Corpuscular Volume 91.5 fL (80.0-96.0) Mean Corpuscular Hemoglobin 31.1 pg (26.0-33.0) Mean Corpuscular Hemoglobin Concent 34.0 g/dL (32.0-36.0) Red Cell Distribution Width 13.8 % (11.5-14.5) Mean Platelet Volume 11.1 fL (7.2-11.1) Neutrophils (%) (Auto) 63.1 % (39.4-72.5) Lymphocytes (%) (Auto) 24.0 % (17.6-49.6) Monocytes (%) (Auto) 9.8 % (4.1-12.4) Eosinophils (%) (Auto) 2.6 % (0.4-6.7) Basophils (%) (Auto) 0.5 % (0.3-1.4) Nucleated RBC Relative Count (auto) 0.0 /100WBC Neutrophils # (Auto) 5.4 K/uL (2.0-7.4) Lymphocytes # (Auto) 2.0 K/uL (1.3-3.6) Monocytes # (Auto) 0.8 K/uL (0.3-1.0) Eosinophils # (Auto) 0.2 K/uL (0.0-0.5) Basophils # (Auto) 0.0 K/uL (0.0-0.1) Nucleated RBC Absolute Count (auto) 0.00 K/uL D-Dimer Quantitative (PE/DVT) < 0.27 ug/ml (0-0.50) Sodium Level 140 mmol/L (137-145) Potassium Level 3.7 mmol/L (3.5-5.0) Chloride Level 107 mmol/L (98-107) Carbon Dioxide Level 27 mmol/L (22-30) Blood Urea Nitrogen 26 mg/dl (9-21) Creatinine 1.00 mg/dl (0.66-1.25) Glomerular Filtration Rate Calc > 60.0 Random Glucose 119 mg/dl (75-110) Calcium Level 9.0 mg/dl (8.4-10.2) Total Bilirubin 1.0 mg/dl (0.2-1.3) Aspartate Amino Transf (AST/SGOT) 24 U/L (0-35) Alanine Aminotransferase (ALT/SGPT) 21 U/L (0-56) Alkaline Phosphatase 93 U/L (0-126) Troponin I < 0.012 ng/ml Total Protein 6.9 g/dl (6.3-8.2) Albumin 3.6 g/dl (3.5-5.0) Chemistry Test 11/26/18 03:00 White Blood Count 8.5 k/uL (4.5-11.0) Red Blood Count 4.81 M/uL (4.00-5.60) Hemoglobin 15.0 g/dL (14.0-18.0) Hematocrit 44.0 % (42.0-52.0) Mean Corpuscular Volume 91.5 fL (80.0-96.0) Mean Corpuscular Hemoglobin 31.1 pg (26.0-33.0) Mean Corpuscular Hemoglobin Concent 34.0 g/dL (32.0-36.0) Red Cell Distribution Width 13.8 % (11.5-14.5) Platelet Count 90 K/uL (150-450) Mean Platelet Volume 11.1 fL (7.2-11.1) Neutrophils (%) (Auto) 63.1 % (39.4-72.5) Lymphocytes (%) (Auto) 24.0 % (17.6-49.6) Monocytes (%) (Auto) 9.8 % (4.1-12.4) Eosinophils (%) (Auto) 2.6 % (0.4-6.7) Basophils (%) (Auto) 0.5 % (0.3-1.4) Nucleated RBC Relative Count (auto) 0.0 /100WBC Neutrophils # (Auto) 5.4 K/uL (2.0-7.4) Lymphocytes # (Auto) 2.0 K/uL (1.3-3.6) Monocytes # (Auto) 0.8 K/uL (0.3-1.0) Eosinophils # (Auto) 0.2 K/uL (0.0-0.5) Basophils # (Auto) 0.0 K/uL (0.0-0.1) Nucleated RBC Absolute Count (auto) 0.00 K/uL D-Dimer Quantitative (PE/DVT) < 0.27 ug/ml (0-0.50) Glomerular Filtration Rate Calc > 60.0 Calcium Level 9.0 mg/dl (8.4-10.2) Total Bilirubin 1.0 mg/dl (0.2-1.3) Aspartate Amino Transf (AST/SGOT) 24 U/L (0-35) Alanine Aminotransferase (ALT/SGPT) 21 U/L (0-56) Alkaline Phosphatase 93 U/L (0-126) Troponin I < 0.012 ng/ml Total Protein 6.9 g/dl (6.3-8.2) Albumin 3.6 g/dl (3.5-5.0) Coagulation Test 11/26/18 03:00 D-Dimer Quantitative (PE/DVT) < 0.27 ug/ml EKG/Imaging EKG Interpretation EKG: Atrial fibrillation, rate 60. Right bundle, left anterior fasicular, No change with comparison, no signs of ischemia. Imaging EXAMINATION: Portable AP Chest 11/26/2018 3:10 AM HISTORY: chest pain, right arm pain COMPARISON: 08/20/2018 FINDINGS: Cardiomediastinal contours: Stable heart size. Aorta is atherosclerotic. Axial thickening is stable. No acute focal infiltrate or consolidation. Minimal scarring along the left heart border. Pleural spaces remain clear. Lungs and pleura: Normal Bones/soft tissues: Cardiac leads are present. IMPRESSION: Stable chest with chronic appearing bronchial thickening. No acute cardiopulmonary abnormality. Report Dictated By: Cirilo Maier MD at 11/26/2018 3:34 AM ED Course/Re-evaluation ED Course Labs unremarkable other than some dehydration. Hydrated with a liter of normal saline. Decision to Disposition Date: November 26, 2018 Decision to Disposition Time: 04:17 Depart Departure Latest Vital Signs Impression: Primary Impression: Dehydration Condition: Improved Disposition: HOME OR SELF-CARE Referrals: JORGE SCHWARZ (PCP) Patient Instructions: Dehydration (ED) Additional Instructions: We did not find any problems that would indicate a silent heart attack. No signs of pneumonia. We did find that you were dehydrated. Recommend drinking several glasses of water more each day. Follow-up with your regular doctor and your garment inspector as planned. No other changes at this time. LAMBERT HAYDEN MD November 26, 2018 03:04
[2018-11-26 03:26] LABS: PLATELET COUNT, AUTOMATED 90 K/uL (150-450)
--- NOTE | 2018-11-26 03:40 | RADIOLOGY IMAGING REPORT ---
FACILITY: [facility] - [place] PATIENT NAME: Erick Montes : 1940 MR: [id number] V: [id number] EXAM DATE: ORDERING PHYSICIAN: LAMBERT HAYDEN TECHNOLOGIST: Location: [facility] - [place] Patient: Erick Montes : 1940 Visit/Account:[id number] Date of Sevice: 11/26/2018 EXAMINATION: Portable AP Chest 11/26/2018 3:10 AM HISTORY: chest pain, right arm pain COMPARISON: 08/20/2018 FINDINGS: Cardiomediastinal contours: Stable heart size. Aorta is atherosclerotic. Axial thickening is stable. No acute focal infiltrate or consolidation. Minimal scarring along the le ft heart border. Pleural spaces remain clear. Lungs and pleura: Normal Bones/soft tissues: Cardiac leads are present. IMPRESSION: Stable chest with chronic appearing bronchial thickening. No acute cardiopulmonary abnorm ality. Report Dictated By: Cirilo Maier MD at 11/26/2018 3:34 AM Report E-Signed By: Cirilo Maier MD at 11/26/2018 3:36 AM WSN:[id number]
[2018-11-26] MEDS ORDERED: NS(*) 0.9% 1000 ML BAG 1,000 ML IV ONE (03:45)
[2018-11-26 04:00] VITALS: BP 123/67
--- NOTE | 2018-11-26 04:51 | EKG ---
FACILITY: [facility] PATIENT NAME: REMA PICKENS : [id number] MR: [id number] V: [id number] EXAM DATE: ORDERING PHYSICIAN: LAMBERT HAYDEN TECHNOLOGIST: JOSE Underwood Reason : CARDIAC Blood Pressure : / mmHG Vent. Rate : 060 BPM Atrial Rate : 080 BPM P-R Int : 000 ms QRS Dur : 112 ms QT Int : 446 ms P-R-T Axes : 000 -58 086 degrees QTc Int : 446 ms Atrial fibrillation Left axis Nonspecific interventricular conduction delay Abnormal ECG Confirmed by JASON JENKINS ([id number]) on 11/26/2018 5:59:54 AM Referred By: Confirmed By:JASON JENKINS
== END 2018-11-26 04:27 | disposition home or self-care (01) ==
LOC: ER 03:14
DX: E86.0 Dehydration (principal)
CPT/HCPCS: 71045; 84484; 85025; 85379; 93005; 99284; J7030; 82040; 82247; 82310; 82374; 82435; 82565; 82947; 84075; 84132; 84155; 84295; 84450; 84460; 84520

== ENCOUNTER → 2018-12-10 | Outpatient (CLI) | payer MEDICARE, MEDICAID ==
[2017-09-06 11:59] VITALS: BMI 22.8
--- NOTE | 2018-12-10 14:06 | RADIOLOGY IMAGING REPORT ---
FACILITY: [facility] - [place] PATIENT NAME: Erick Montes : 1940 MR: [id number] V: [id number] EXAM DATE: ORDERING PHYSICIAN: KIMBERLY DOMINGUEZ TECHNOLOGIST: Location: [facility] - [place] Patient: Erick Montes : 1940 Visit/Account:[id number] Date of Sevice: 12/10/2018 INDICATION: . Knee pain. Fall onto concrete. DATE: 12/10/2018 1:56 PM. TECHNIQUE: KNEE 3 VIEW RIGHT COMPARISON: None FINDINGS: No acute osseous abnormality. The intramedullary lulu within the tibial shaft is incomplete ly imaged. There is no apparent hardware competition within the included region. Mild patellofemora l compartment degenerative findings. Mild medial compartment degenerative change. No effusion. Pro minent popliteal and distal femoral atherosclerosis. IMPRESSION: No acute osseous abnormality. Degenerative findings as noted. Report Dictated By: Rajinder Herring MD at 12/10/2018 1:56 PM Report E-Signed By: Rajinder Herring MD at 12/10/2018 2:01 PM WSN:[id number]
== END ==
LOC: RAD 13:14
PROVIDERS: ATTEND Nurse Practitioner Family
DX: M25.561 Pain in right knee (principal); Z91.81 History of falling

== ENCOUNTER → 2018-12-16 | Outpatient (CLI) | payer MEDICARE, MEDICAID ==
[2017-09-06 11:59] VITALS: BMI 22.8
== END ==
LOC: US 00:50
PROVIDERS: ATTEND Internal Medicine Cardiovascular Disease
DX: I51.7 Cardiomegaly (principal); I34.0 Nonrheumatic mitral (valve) insufficiency; I36.1 Nonrheumatic tricuspid (valve) insufficiency; I35.1 Nonrheumatic aortic (valve) insufficiency; I34.2 Nonrheumatic mitral (valve) stenosis
CPT/HCPCS: 93306

== ENCOUNTER 2019-02-09 01:05 | Emergency (ER) | payer MEDICARE, MEDICAID ==
[2017-09-06 11:59] VITALS: Wt 63.1 kg
--- NOTE | 2019-02-09 01:12 | ER Report ---
History and Physical Time Seen By MD: 01:02 HPI/ROS CHIEF COMPLAINT: Chest pain and left shoulder pain HISTORY OF PRESENT ILLNESS: 78-year-old male presents with sudden onset of chest pain over one hour while he was sleeping. Patient notes no diaphoresis or shortness of breath. He notes a deep ache in his left shoulder. It is not aggravated by movement of the left shoulder. Patient denies cardiac history. Patient has a history of atrial fibrillation on Eliquis. Patient notes no change with breathing. He's had no leg swelling or calf pain.Patient is followed by Dr. West cardiology was seen less than 1 month ago. He has routine follow-up scheduled in 6 months. REVIEW OF SYSTEMS: Respiratory: No cough, no dyspnea. Cardiovascular: As above Gastrointestinal: No vomiting, no abdominal pain. Musculoskeletal: No back pain. Allergies: Coded Allergies: Penicillins (Verified Allergy, Mild, REACTION TO INJECTION, 11/26/18) Home Meds Active Scripts Tramadol Hcl (TRAMADOL HCL) 50 Mg Tablet, 1 TAB PO Q6-8H for PAIN, #15 MG TAKE ONE TABLET BY MOUTH EVERY 6-8 HOURS NEEDED Prov:LEROY RICHMOND DO 02/09/19 Glimepiride (GLIMEPIRIDE) 4 Mg Tablet, 2 MG PO QDAY, #30 TAB 1 Refill One-half tab daily (2mg). Prov:JASON JENKINS MD 09/07/17 Reported Medications Amlodipine Besylate (AMLODIPINE BESYLATE) 5 Mg Tablet, 0.5 TAB PO QDAY, TAB 02/09/19 Apixaban (ELIQUIS) 2.5 Mg Tablet, 4 MG PO BID 04/06/18 Nitroglycerin (NITROGLYCERIN) 0.4 Mg Tab.subl, 0.4 MG SL Q5MIN 09/04/17 Atorvastatin Calcium (LIPITOR) 10 Mg Tablet, 1 TAB PO QDAY, TAB 07/29/17 Reviewed Nurses Notes: Yes Old Medical Records Reviewed: Yes Hx Smoking: Yes Smoking Status: Former Smoker Exposure to Second Hand Smoke?: No Hx Substance Use Disorder: No Hx Alcohol Use: Yes Constitutional Vital Sign - Last 24 Hours 02/09/19 02/09/19 02/09/19 02/09/19 01:06 01:08 01:30 01:35 Temp 97.4 Pulse 51 52 Resp 16 12 B/P (MAP) 145/91 (109) 145/91 129/75 (93) Pulse Ox 94 100 02/09/19 02/09/19 02/09/19 02/09/19 02:00 02:05 02:30 02:35 Pulse 50 48 Resp 16 10 B/P (MAP) 133/69 (90) 136/64 (88) Pulse Ox 100 99 Physical Exam General Appearance: The patient is alert, has no immediate need for airway protection and no current signs of toxicity. Vital signs stable, afebrile, pulse ox normal HEENT: Pupils equal and round no injection. Oropharynx without redness or exudate, mucous. Membranes are moist Respiratory: Chest is non tender, lungs are clear to auscultation. No chest wall tenderness Cardiac: regular rate and rhythm, no murmur Gastrointestinal: [Abdomen is soft and non tender, no masses, bowel sounds normal.] [Musculoskeletal:] [Neck:] [Neck is supple and non tender.] [Extremities have full range of motion and are non tender.] [Skin:] [No rashes or lesions.] [ ] [DIFFERENTIAL DIAGNOSIS: After history and physical exam differential diagnosis was considered for] [ ] Medical Decision Making Data Points Result Diagram: 02/09/19 0112 02/09/19 0112 Laboratory Hematology Test 02/09/19 01:12 White Blood Count 6.9 k/uL (4.5-11.0) Red Blood Count 4.94 M/uL (4.00-5.60) Hemoglobin 15.6 g/dL (14.0-18.0) Hematocrit 45.3 % (42.0-52.0) Mean Corpuscular Volume 91.6 fL (80.0-96.0) Mean Corpuscular Hemoglobin 31.7 pg (26.0-33.0) Mean Corpuscular Hemoglobin Concent 34.5 g/dL (32.0-36.0) Red Cell Distribution Width 13.7 % (11.5-14.5) Platelet Count 93 K/uL (150-450) L Mean Platelet Volume 9.6 fL (7.2-11.1) Neutrophils (%) (Auto) 46.2 % (39.4-72.5) Lymphocytes (%) (Auto) 39.5 % (17.6-49.6) Monocytes (%) (Auto) 9.9 % (4.1-12.4) Eosinophils (%) (Auto) 4.0 % (0.4-6.7) Basophils (%) (Auto) 0.4 % (0.3-1.4) Nucleated RBC Relative Count (auto) 0.1 /100WBC Neutrophils # (Auto) 3.2 K/uL (2.0-7.4) Lymphocytes # (Auto) 2.7 K/uL (1.3-3.6) Monocytes # (Auto) 0.7 K/uL (0.3-1.0) Eosinophils # (Auto) 0.3 K/uL (0.0-0.5) Basophils # (Auto) 0.0 K/uL (0.0-0.1) Nucleated RBC Absolute Count (auto) 0.01 K/uL Chemistry Test 02/09/19 01:12 Sodium Level 139 mmol/L (137-145) Potassium Level 3.6 mmol/L (3.5-5.0) Chloride Level 103 mmol/L (98-107) Carbon Dioxide Level 27 mmol/L (22-30) Blood Urea Nitrogen 16 mg/dl (9-21) Creatinine 0.90 mg/dl (0.66-1.25) Glomerular Filtration Rate Calc > 60.0 Random Glucose 133 mg/dl (75-110) Calcium Level 9.3 mg/dl (8.4-10.2) Total Bilirubin 1.0 mg/dl (0.2-1.3) Aspartate Amino Transf (AST/SGOT) 31 U/L (0-35) Alanine Aminotransferase (ALT/SGPT) 32 U/L (0-56) Alkaline Phosphatase 109 U/L (0-126) Troponin I < 0.012 ng/ml B-Type Natriuretic Peptide 175 pg/ml (0-100) Total Protein 7.6 g/dl (6.3-8.2) Albumin 4.0 g/dl (3.5-5.0) Coagulation Test 02/09/19 01:12 Prothrombin Time 14.9 seconds (12.0-14.4) Prothromb Time International Ratio 1.17 Activated Partial Thromboplast Time 31 seconds (23-35) EKG/Imaging EKG Interpretation 12 lead EK Rhythm: Atrial fibrillation, rate 55 bpm [place]: Left axis deviation QRS: normal ST segments: normal, on comparison to previous EKG dated 11/26/18, no significant change Imaging X-ray: Single view portable chest x-ray was obtained. I viewed the images myself on the PACS system. My interpretation of the images is: No infiltrate, no effusion, normal mediastinum., Comparison to previous chest x-ray. 11/26/89, no significant change. The radiologist interpretation had no clinically significant variation from this interpretation. ED Course/Re-evaluation Clinical Indication for ER IV: IV Access ED Course Patient was minute to an examination room. H&P was done. The differential d iagnoses was considered. Patient had EKG which is unchanged from his previous EKG. Chest x-ray was unremarkable. His troponin and BMP were unremarkable. Patient's chest x-ray shows no obvious change. Patient was medicated with fentanyl. He noted no change in his pain. Patient took nitroglycerin at home 3 without improvement. Patient was given a GI cocktail with no change in his pain. Decision to Disposition Date: Feb 09, 2019 Decision to Disposition Time: 02:01 Depart Departure Latest Vital Signs Vital Signs Date Time Temp Pulse Resp B/P (MAP) Pulse Ox O2 Delivery O2 Flow Rate FiO2 02/09/19 02:35 48 10 99 02/09/19 02:30 136/64 (88) 02/09/19 01:08 97.4 Impression: Primary Impression: Chest pain Condition: Improved Disposition: HOME OR SELF-CARE Referrals: JORGE SCHWARZ [employer] (PCP) New Scripts Tramadol Hcl (TRAMADOL HCL) 50 Mg Tablet 1 TAB PO Q6-8H for PAIN, #15 MG TAKE ONE TABLET BY MOUTH EVERY 6-8 HOURS NEEDED Prov: LEROY RICHMOND DO 02/09/19 Patient Instructions: Noncardiac Chest Pain (ED) Additional Instructions: Follow-up with your primary care within 1 week for reevaluation Problem Qualifiers Primary Impression: Chest pain Chest pain type: unspecified Qualified Codes: R07.9 - Chest pain, unspecified LEROY RICHMOND DO Feb 09, 2019 01:12
[2019-02-09] MEDS ORDERED: AMLO-125 PO (01:18)
[2019-02-09] MEDS ORDERED: fentaNYL CITR 100 MCG/2 ML AMP IVP ONE (01:25)
[2019-02-09] MEDS ORDERED: ONDANSETRON 4 MG/2 ML VIAL IVP ONE (01:25)
[2019-02-09 01:35] LABS: PLATELET COUNT, AUTOMATED 93 K/uL (150-450)
[2019-02-09 01:38] LABS: INR 1.17
--- NOTE | 2019-02-09 01:59 | RADIOLOGY IMAGING REPORT ---
FACILITY: [facility] PATIENT NAME: Erick Montes : 1940 MR: [id number] V: [id number] EXAM DATE: ORDERING PHYSICIAN: LEROY RICHMOND TECHNOLOGIST: Location: [facility] Patient: Erick Montes : 1940 Visit/Account:[id number] Date of Sevice: 02/09/2019 PORTABLE CHEST: Indication: Chest pain. Technique: A single frontal film was obtained. Comparison: 11/26/2018 Skeletal and soft tissue structures: There are mild degenerative changes in the shoulders. No acute s keletal deformity. Heart and mediastinum: Stable mild cardiomegaly. Lung gomez: Well-expanded and clear. No focal or diffuse opacities. Pleural spaces: Unremarkable. Impression: No acute process or significant change. Report Dictated By: Pranav Urbano MD at 02/09/2019 1:49 AM Report E-Signed By: Pranav Urbano MD at 02/09/2019 1:51 AM WSN:[id number]
--- NOTE | 2019-02-09 02:28 | EKG ---
FACILITY: [facility] [place] PATIENT NAME: REMA PICKENS : [id number] MR: [id number] V: [id number] EXAM DATE: ORDERING PHYSICIAN: LEROY RICHMOND TECHNOLOGIST: NATE Underwood Reason : CP Blood Pressure : / mmHG Vent. Rate : 055 BPM Atrial Rate : 075 BPM P-R Int : 000 ms QRS Dur : 118 ms QT Int : 478 ms P-R-T Axes : 000 -67 094 degrees QTc Int : 457 ms Atrial fibrillation Left anterior fascicular block Abnormal ECG When compared with ECG of 26-NOV-2018 03:17, Previous ECG has undetermined rhythm, needs review Right bundle branch block is no longer present Confirmed by JASON PARK ([id number]) on 02/09/2019 6:34:21 AM Referred By: Confirmed By:JASON PARK
[2019-02-09 02:30] VITALS: BP 136/64
[2019-02-09] MEDS ORDERED: MAG HYD/AL HYD/SIMETH 30ML UDC PO ONE (02:40)
[2019-02-09] MEDS ORDERED: LIDOCAINE 2% VISC SLN 15ML UDC PO ONE (02:40)
[2019-02-09] MEDS ORDERED: TRAM-420 PO (03:13)
== END 2019-02-09 03:18 | disposition home or self-care (01) ==
LOC: ER 01:11
DX: R07.9 Chest pain, unspecified (principal); I44.30 Unspecified atrioventricular block
CPT/HCPCS: 71045; 83880; 84484; 85025; 85610; 85730; 93005; 96374; 96375; 99284; A9270; J2405; J3010; 82040; 82247; 82310; 82374; 82435; 82565; 82947; 84075; 84132; 84155; 84295; 84450; 84460; 84520